=== PATIENT | female | born 1980 | race Caucasian/White ===

== ENCOUNTER 2019-12-24 09:50 | Outpatient (CLI) | payer OTHER, SELFPAY ==
--- NOTE | ~2019-12-24 | MM_ITS ---
EXAMINATION: MM screening [facility] BI w qamar HISTORY: Screening mammogram TECHNIQUE: Craniocaudal and mediolateral oblique 3-D tomosynthesis images were obtained and synthetic 2-D images were generated. CAD analysis was submitted and interpreted. COMPARISON: 09/01/2014, 08/18/2012 BREAST PARENCHYMAL COMPOSITION: The breasts are heterogeneously dense, which may obscure small masses . FINDINGS: RIGHT BREAST: There are indeterminate calcifications in the middle and posterior third of the upper o uter quadrant of the breast. LEFT BREAST: Indeterminate calcifications are present in the middle third of the lower breast. A stab le mass in the middle third of the outer breast is considered benign given the lack of interval lu e, likely reflecting an intramammary lymph node. IMPRESSION: 1. Indeterminate bilateral breast calcifications. 2. Magnification views are recommended. BI-RADS Category 0: Incomplete: Needs additional imaging evaluation. Reviewed, dictated and finalized at location A.
== END 2019-12-24 09:51 | disposition home or self-care (01) ==
LOC: ANHIMG 09:52
PROVIDERS: PCP Student in an Organized Health Care Education/Training Program; Visit Provider Student in an Organized Health Care Education/Training Program
DX: N64.89 Other specified disorders of breast (principal)
CPT/HCPCS: 77063; 77067

== ENCOUNTER 2019-12-27 11:00 | Outpatient (CLI) | payer OTHER, SELFPAY ==
--- NOTE | ~2019-12-27 | MM_ITS ---
EXAMINATION: MM diagnostic mammo BI HISTORY: Indeterminate breast calcifications on screening mammogram TECHNIQUE: Additional 3-D tomosynthesis images of the breasts were performed and synthetic 2-D images were generated. Magnification views are also obtained. CAD analysis was submitted and interpreted. COMPARISON: 12/24/2019, 09/01/2014, 08/18/2012 FINDINGS: Right breast: Coarse heterogeneous and punctate calcifications are present in the upper outer quadran t of the breast. There are groups of calcifications in the middle third of the outer breast at the 9: 00 location 6 cm from the nipple which are in a linear distribution. Some groups of calcifications in the posterior third of the upper outer quadrant of the breast 10 cm from the nipple are also in a si milar distribution. Left breast: There are coarse heterogeneous and punctate calcifications in the outer aspect of the br east, predominantly between 2:00 and 4:00. Some groups of calcifications in the middle third of the c entral breast demonstrate a linear distribution similar to the right breast. IMPRESSION: 1. Suspicious bilateral calcifications as described above. 2. Given the similarity of the bilateral calcifications, would recommend biopsy of the most conspicuo us group at the 9:00 location in the right breast and use biopsy results to guide management of the o ther groups of calcifications. BI-RADS category 4, suspicious findings. Reviewed, dictated and finalized at location A. IMPRESSION: 1. Suspicious bilateral calcifications as described above. 2. Given the similarity of the bilateral calcifications, would recommend biopsy of the most conspicuous group at the 9:00 location in the right breast and use biopsy results to guide management of the other groups of calcifications. BI-RADS category 4, suspicious findings.
== END 2019-12-27 11:01 | disposition home or self-care (01) ==
LOC: ANHIMG 11:02
PROVIDERS: PCP Student in an Organized Health Care Education/Training Program; Visit Provider Student in an Organized Health Care Education/Training Program
DX: R92.8 Other abnormal and inconclusive findings on diagnostic imaging of breast (principal)
CPT/HCPCS: 77066

== ENCOUNTER 2021-01-10 14:58 | Emergency (ER) | payer OTHER, SELFPAY ==
--- NOTE | 2021-01-10 15:05 | ED.URI ---
HPI - URI/Sore Throat General Chief Complaint: Upper Respiratory Infection Stated Complaint: cough/stuffy nose/nasal drip/garcia/ear pain/sob Time Seen by Provider: 01/10/21 15:00 Source: patient and RN notes reviewed History of Present Illness HPI Narrative: Patient is a 40-year-old female who presents the urgent care with complaints of cough, headache, stuffiness, postnasal drainage and cough. Patient states is been going on since Thursday and she has been taking [id number] Tylenol Cold and flu other sinus medication. Patient states that she went through the drive-through today for Covid test which she has not had resulted. Patient states that her ear just started hurting yesterday and when she wants to make sure she does not have an infection . Patient has not quarantined since her symptoms started and states that she was just at the store yesterday getting cold medication. Patient has had one Covid vaccination. No other acute complaints. No acute distress noted. Patient aware of the plan of care. Some parts of this dictation were generated by voice recognition software and may contain typographical and/or grammatical inaccuracies. Related Data Allergies Allergy/AdvReac Type Severity Reaction Status Date / Time loratadine Allergy Mild Dizziness Verified 01/10/21 15:05 codeine Allergy Unknown Vomiting Verified 01/10/21 15:05 erythromycin base Allergy Unknown Rash Verified 01/10/21 15:05 Sulfa (Sulfonamide Allergy Unknown Rash Verified 01/10/21 15:05 Antibiotics) vancomycin Allergy Unknown Vomiting Verified 01/10/21 15:05 Review of Systems Review of Systems: CONSTITUTIONAL: Denies fever, chills, or sweats. EYES: Denies visual changes, redness, or discharge. ENT: Reports of rhinorrhea, nasal congestion, postnasal drainage, bilateral otalgia CARDIOVASCULAR: Denies chest pain, palpitations, or edema. RESPIRATORY: Reports of cough with intermittent dyspnea GASTROINTESTINAL: Denies abdominal pain, nausea, vomiting, or diarrhea. GENITOURINARY: Denies dysuria or hematuria. SKIN: Denies rash or itching. MUSCULOSKELETAL: Denies back pain, joint pain, or myalgia. NEUROLOGIC: Reports of headache All other systems reviewed are negative, except as documented in HPI. [facility] Past Medical History Medical History ROX positive (~11/2018) Anxiety Inflammatory arthritis Irritable bowel Vaginal delivery x1 Vitamin D deficiency Surgical History Surgical History History of cholecystectomy History of placement of ear tubes History of tonsillectomy Family History Family History Father Family history of malignant neoplasm of brain Grandparent Family history of malignant neoplasm of brain Social History Social History Smoking status: Never smoker Second hand tobacco smoke exposure: No Alcohol intake: never Substance use: never Comments At the time of my signature, I reviewed and agree with the nursing past medical, surgical, social, and family history. There is no relevant family history pertinent to the patient complaint. Exam Narrative: GENERAL: This is a well-nourished, well-developed patient, in no apparent distress. HEAD: normocephalic, atraumatic. EYES: PERRL. Sclera clear/white. Vision is grossly intact. EARS: External ears normal, auditory canals clear and without drainage, TMs normal without perforation. Hearing grossly intact. NOSE: External nose normal with no obvious nasal discharge, nares without redness, clear rhinorrhea. THROAT: Mucous membranes moist, posterior pharynx clear. Mild postnasal drainage NECK: Neck supple CARDIOVASCULAR: Regular rate and rhythm without murmurs, gallops, or rubs. RESPIRATORY: Clear to auscultation. Breath sounds equal bilaterally.
[2021-01-10 15:07] VITALS: BP 140/93; PULSE 114; RESP 20; TEMP 36.2; O2SAT 99
== END 2021-01-10 15:31 | disposition home or self-care (01) ==
PROVIDERS: Emergency Provider Nurse Practitioner Family
DX: B34.9 Viral infection, unspecified (principal); E55.9 Vitamin D deficiency, unspecified; F41.9 Anxiety disorder, unspecified
CPT/HCPCS: 99213; G0463

== ENCOUNTER 2021-09-04 12:32 | Outpatient (CLI) | payer OTHER, SELFPAY ==
--- NOTE | ~2021-09-04 | CT_ITS ---
EXAMINATION: CT abd pelvis lumbar wo con DATE: 09/04/2021 13:00 INDICATION: Low back pain, unspecified. Pelvic pain. TECHNIQUE: Computed tomography (CT) of the abdomen and pelvis and lumbar spine was performed without intravenous contrast. Automated exposure control and iterative reconstruction technique were employed . The dose-length product was 1187.94 mGy-cm. COMPARISON: None. FINDINGS: CT ABDOMEN AND PELVIS: The visualized portions of the lung bases demonstrate mild atelectasis. No ple ural effusion. The heart size is normal. No pericardial effusion. The liver is normal. There are frazier ges of cholecystectomy. The spleen, pancreas, adrenal glands, and right kidney are normal. There is a 2.4 cm cyst in left kidney. There is a 2 mm stone in left kidney. There are no dilated loops of rory l. The appendix is normal. There is a supraumbilical ventral hernia containing fat. There are no path ologically enlarged lymph nodes. There is no free intraperitoneal fluid. CT LUMBAR SPINE: There is 5 degrees levocurvature of lumbar spine. Vertebral body heights are normal. There is mildly decreased disc height at L3-L4 and L4-L5. There are chronic bilateral L5 pars defect s. The following disc levels are specifically discussed: L1-L2: The disc does not extend beyond the endplate margin. There is mild bilateral facet joint osteo arthritis. There is no neural foraminal stenosis. There is no central canal stenosis. L2-L3: The disc does not extend beyond the endplate margin. There is mild bilateral facet joint osteo arthritis. There is no neural foraminal stenosis. There is no central canal stenosis. L3-L4: The disc is bulging. There is mild bilateral facet joint osteoarthritis. There is mild bilater al neural foraminal stenosis. There is mild central canal stenosis. L4-L5: The disc is bulging. There is severe bilateral facet joint osteoarthritis. There is mild bilat eral neural foraminal stenosis. There is mild central canal stenosis. L5-S1: The disc does not extend beyond the endplate margin. There is mild bilateral facet joint osteo arthritis. There is mild bilateral neural foraminal stenosis. There is no central canal stenosis. IMPRESSION: 1. Supraumbilical ventral hernia containing fat. 2. Chronic bilateral L5 pars defects without spondylolisthesis. 3. Mild lumbar spondylosis. Reviewed, dictated and finalized at location B.
== END 2021-09-04 12:33 | disposition home or self-care (01) ==
PROVIDERS: PCP Family Medicine; Visit Provider Physician Assistant Medical
DX: R10.2 Pelvic and perineal pain (principal); M47.896 Other spondylosis, lumbar region; K42.9 Umbilical hernia without obstruction or gangrene
CPT/HCPCS: 72131; 74176

== ENCOUNTER 2021-10-03 08:35 | Outpatient (CLI) | payer OTHER, SELFPAY ==
--- NOTE | ~2021-10-03 | US_ITS ---
US renal BI 10/03/2021 08:56 Procedure: Realtime transabdominal ultrasound of the kidneys and bladder. Indication: Renal cyst Comparison: CT dated 09/04/2021 Findings: Renal echotexture is normal bilaterally without hydronephrosis, contour deforming mass or r enal calculus. There is a left renal cyst measuring 2.5 x 2.4 x 2.3 cm. The right kidney measures 11. 4 cm and left kidney measures 11.7 cm. Bladder within normal limits. Impression: 1: Left renal cyst measuring 2.5 cm. Reviewed, dictated and finalized at location A. Impression: 1: Left renal cyst measuring 2.5 cm.
== END 2021-10-03 08:36 | disposition home or self-care (01) ==
PROVIDERS: PCP Family Medicine; Visit Provider Physician Assistant Medical
DX: N28.1 Cyst of kidney, acquired (principal)
CPT/HCPCS: 76775

== ENCOUNTER 2021-10-26 09:29 | Outpatient (CLI) | payer OTHER, SELFPAY ==
[2021-10-26 10:00] LABS: Hematocrit 44.2 % (37.0-47.0); Hemoglobin 14.4 g/dL (12.0-15.0); Mean Corpuscular HGB Conc 32.6 g/dl (32-36); Mean Corpuscular Hemoglobin 29.7 pg (26-34); Mean Corpuscular Volume 91.1 fl (80-100); Mean Platelet Volume 9.1 fl (7.4-10.4); Platelet Count Result 340 k/mm3 (150-375); Red Blood Count 4.85 M/mm3 (4.2-5.4); Red Cell Distribution Width 12.9 % (11.5-14.5); White Blood Count 7.2 K/mm3 (4.5-10.0)
[2021-10-26 10:06] LABS: Alanine Aminotransferase 24 U/L (6-35); Albumin Level 4.1 g/dL (3.5-5.1); Alkaline Phosphatase 94 U/L (38-126); Anion Gap 2 mmol/L (8-16); Aspartate Amino Transferase 26 U/L (14-36); Bilirubin,Total 0.4 mg/dL (0.2-1.3); Blood Urea Nitrogen 13 mg/dL (7-17); Calcium 8.9 mg/dL (8.4-10.2); Carbon Dioxide 30 mmol/L (22-30); Chloride 106 mmol/L (98-107); Cholesterol 231 mg/dL (0-200); Estimated Glomerular Filt Rate > 60; Glucose 90 mg/dL (65-110); HDL Direct 38 mg/dL; Potassium 4.4 mmol/L (3.4-5.0); Sodium 138 mmol/L (137-145); Triglycerides 176 mg/dL (<150)
[2021-10-26 10:17] LABS: LDL Cholesterol Direct 147 mg/dL
[2021-10-26 10:30] LABS: Erythrocyte Sedimentation Rate 15 mm/hr (0-20)
== END 2021-10-26 09:30 | disposition home or self-care (01) ==
LOC: ANHLAB 09:31
PROVIDERS: PCP Family Medicine; Visit Provider Physician Assistant Medical
DX: E78.2 Mixed hyperlipidemia (principal); R53.83 Other fatigue; M54.50 Low back pain, unspecified
CPT/HCPCS: 36415; 80053; 80061; 85027; 85652

== ENCOUNTER 2022-01-24 15:30 | Outpatient (RCR) | payer OTHER, SELFPAY ==
--- NOTE | 2021-11-21 16:07 | PTOPEVAL ---
Thank you for referring Isabel Sanders to [facility].? She is scheduled to be seen for therapy? 2 x/week for 4 weeks. Please review, sign, date and return this plan of care ROBERT. I agree with and certify that the following plan of care is medically necessary. 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 bladder stones Musculoskeletal History Hx Back Pain Yes Hx Other Musculoskeletal Disorders Yes: neck pain with headaches; Endocrine History Hx Endocrine Disorders No Significant History HEENT History Hx Tonsillectomy Yes: 1998 Hx Ear Surgery Yes: 1980 Other History Hx Other Medical Conditions Yes: increase wt gain since had daughter 4 yr ago Evaluation Information Diagnosis lumbar stenosis Onset May 2021 Subjective Information gradual increase in back pain, Query Text:As Reported By Patient/ no trauma or injury to back; Family Diagnostic Tests Other Tests For This Problem Yes: CT-lumbar levocurvature, disc bulge L3-4, L 4-5;facet jt OA Prior Level of Function Activity Level (Last 3 Months) 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, 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, 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 Hand Dominance Right Comments Additional Prior Level of Function can do all home tasks, but Comments increased pain in back, have to sit/rest due to pain; prior to having 4 year old daughter was doing fitness exercises, no longer do Pain Assessment Pain Scale Pain Scale Used Numeric (1 - 10) Self Report Pain Assessment Bilateral Back Reported Pain Level 2 Pain Description Aching Radicular Pain Location R low back, R hip lateral, into anterior hip; pops in back, nagging pain Pain Frequency Chronic,Continuous Lowest Pain Intensity 2 Greatest Pain Intensity 6 Pain Aggravating Factors Exercise/Activity,Lifting Other Pain Aggravating Factors with 10 min of home activity/
--- NOTE | 2021-12-03 17:07 | PCPTNOTE ---
Patient re-scheduled appointment this date for later this week.
--- NOTE | 2021-12-05 16:11 | PCPTNOTE ---
Patient called & cancelled scheduled appointment this date due to not feeling well.
--- NOTE | 2021-12-20 16:23 | PTOPEVAL ---
PHYSICAL THERAPY REEVALUATION AND UPDATED PLAN OF CARE 12-20-21 Refer to the clinical summary below, for her status today, compared to the initial evaluation. The goals were partially achieved. Continue PT treatment 1x/wk for 5 weeks. Thank you for referring Isabel Sanders to [facility].? Please review, sign, date and return this updated plan of care [facility]. I agree with and certify that the following plan of care is medically necessary. 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- she was pleased with the improvements of the back pain; want to continue therapy; Pain Assessment Pain Scale Pain Scale Used Numeric (1 - 10) Self Report Pain Assessment Bilateral Back Pain Frequency Chronic,Intermittent Other Pain Description nagging dull pain-- R lower back and lateral upper hip into anterior pelvic Lowest Pain Intensity 0 Greatest Pain Intensity 5 Other Pain Aggravating Factors end of the day about 9 PM Additional Pain Score Comments pt report activity level of 30 minutes before have to sit due to pain, rest about 15 min , then go again; at the end of the day, in bed rolling side/side sometimes hurts; Oswestry self assessment functional score of 30% limitation in activity level; pt stood and foam placed under L foot ~ 1/4 thickness- pelvis more level; discussed her obtaining shoe insert for L Interventions Used Interventions Used By Clinicians Education,Exercise Pain Relief Interventions Used By Heat,Ice,Position Change Patient Other Alleviating Interventions sit with good position; taken advil about every other day Lumbar ROMComments standing trunk flexion increase pain when return to upright position/ extension increase soreness Gross Lower Extremity Range of Motion - hip IR: prone, with knee Comments
--- NOTE | 2022-01-02 09:20 | PCPTNOTE ---
Patient called & cancelled scheduled appointment this date due to being sick.
--- NOTE | 2022-01-24 16:14 | PTOPDC ---
Assessment and note entered by Selena Mckeon, PT Evaluation Information Assessment Status Discharge Subjective Information Isabel reports: back is about the same, have good and bad days--not sure why; have been watching posture and doing exercises at home; Reported Pain Level Pain Score Self Report low back pain Additional Pain Score Comments pain range of 2-7/10; nagging, achey pain; increase with bending forward, lifting, moving wrong; eases with stretching, ice, tylenol and laying on back; hurts occasionally when roll R/L in bed; activity tolerance with home tasks before have to sit down is 45 minutes. Self assessment Oswestry score of 28% limitation in activity Assessment PT Clinical Summary Isabel has received 11 PT sessions. Compared to the last reevaluation: pain rating is worse at low and high rating, from 0-5/10 to 2-7/ 10; self assessment Oswestry improved by 2%; reported activity tolerance increased by 15 minutes; hip and trunk flexibility are about the same with ROM and painful motions; Education has been completed for HEP, correct lifting posture and techniques for pain management The goals were partially achieved. Discharge PT services. Plan of Care PT Services Indicated No
== END 2022-01-27 09:35 | disposition home or self-care (01) ==
LOC: ANHPT 15:30
PROVIDERS: PCP Family Medicine; Visit Provider Physician Assistant Medical
DX: M54.50 Low back pain, unspecified (principal); M47.816 Spondylosis without myelopathy or radiculopathy, lumbar region
CPT/HCPCS: 97110; 97112; 97140; 97161; 97530

== ENCOUNTER 2022-02-18 11:51 | Emergency (ER) | payer OTHER, SELFPAY ==
--- NOTE | ~2022-02-18 | XR_ITS ---
EXAMINATION: XR chest 2V DATE: 02/18/2022 12:21 INDICATION: Cough and fever. TECHNIQUE: Frontal and lateral views of the chest were obtained. COMPARISON: CT abdomen and pelvis 09/04/2021 FINDINGS: The chest demonstrates clear lungs without pneumonia, pleural effusion, or pneumothorax. Th e heart size is normal. Surgical clips in the right upper quadrant are likely from cholecystectomy. IMPRESSION: 1. No acute cardiopulmonary disease. Reviewed, dictated and finalized at location B.
--- NOTE | 2022-02-18 11:55 | ED.URI ---
HPI - URI/Sore Throat General Chief Complaint: Upper Respiratory Infection Stated Complaint: COUGH/FEVER/LOSING VOICE/BODY ACHES/CHEST PN/CHILL Time Seen by Provider: 02/18/22 12:01 Source: patient and RN notes reviewed Mode of arrival: ambulatory Limitations: no limitations History of Present Illness HPI Narrative: 41 year year old female presents to the [facility] with productive cough, sore throat, body aches, chills, subjective fever patient states started to 3 days. States that she believes it was because the coughing too hard. States that she did take all medicine yesterday. Related Data Allergies Allergy/AdvReac Type Severity Reaction Status Date / Time codeine AdvReac Intermediate Vomiting Verified 02/18/22 11:56 vancomycin AdvReac Intermediate Vomiting Verified 02/18/22 11:56 erythromycin base AdvReac Mild Rash Verified 02/18/22 11:56 loratadine AdvReac Mild Dizziness Verified 02/18/22 11:56 Sulfa (Sulfonamide AdvReac Mild Rash Verified 02/18/22 11:56 Antibiotics) Review of Systems Review of Systems: All systems reviewed & are unremarkable except as noted in HPI and below Constitutional: Constitutional: Reports as per HPI, Reports chills and Reports fever(s) Eyes: Eyes: Reports no additional eye complaints ENT: Reports as per HPI and Reports sore throat Cardiovascular: Cardiovascular: Reports no additional cardiovascular complaints Respiratory: Respiratory: Reports as per HPI, Reports cough, Denies dyspnea and Denies wheezing Gastrointestinal: Gastrointestinal: Reports as per HPI Musculoskeletal: Musculoskeletal: Reports no additional musculoskeletal complaints Integumentary/Breasts: Skin/Breast: Reports system reviewed and no additional complaints, except as docu Neurologic: Reports system reviewed and no additional complaints, except as documented Psychiatric: Psychiatric: Reports no additional psychiatric complaints Allergic/Immunologic: Allergic/Immunologic: Reports no additional allergic/immunologic complaints [facility] Past Medical History Medical History ROX positive (~11/2018) Anxiety Bulging lumbar disc Inflammatory arthritis Irritable bowel Kidney stone Low back pain Renal cyst, acquired, left Ulcerative colitis Vaginal delivery x1 Vitamin D deficiency Surgical History Surgical History History of cholecystectomy History of placement of ear tubes History of tonsillectomy Family History Family History Father Family history of malignant neoplasm of brain Grandparent Family history of malignant neoplasm of brain Mother Diabetes mellitus Rheumatoid arthritis Osteoarthritis Hypertension Sibling Hypertension Social History Social History Smoking status: Never smoker Second hand tobacco smoke exposure: No Alcohol intake: current Alcohol use details: seldom; socially Substance use: never Substance use type: does not use Comments At the time of my signature, I reviewed and agree with the nursing past medical, surgical, social, and family history. There is no relevant family history pertinent to the patient complaint. Exam Const: General: healthy appearing, no acute distress, alert and well nourished Nutritional Appearance: well nourished and obese Orientation/consciousness: patient oriented x3 Limitations: no limitations HENMT: Head: normal to inspection Ears: external ears normal, TM's normal bilaterally and EAC's normal Face/Nose/Sinus: Normal external nose present and Nasal discharge present clear bilateral Face and sinus: normal facial exam Mouth: Yes Normal oral and palatal mucosa present, Yes lip normal and Yes moist mucous membranes Throat: posterior oropharynx normal and uvula midline Eyes: General: appearance normal, both eyes
[2022-02-18 12:01] VITALS: BP 130/97; PULSE 122; RESP 16; TEMP 38; O2SAT 97
== END 2022-02-18 13:00 | disposition home or self-care (01) ==
PROVIDERS: Emergency Provider Nurse Practitioner; PCP Physician Assistant Medical
DX: J40 Bronchitis, not specified as acute or chronic (principal); Z20.822 Contact with and (suspected) exposure to COVID-19; M13.80 Other specified arthritis, unspecified site; E55.9 Vitamin D deficiency, unspecified
CPT/HCPCS: 71046; 87081; 87426; 87804; 87880; 99213; C9803; G0463

== ENCOUNTER 2022-03-28 14:41 | Emergency (ER) | payer OTHER, SELFPAY ==
[2022-03-28 14:59] VITALS: BP 118/86; PULSE 90; RESP 16; TEMP 36.3; O2SAT 100
--- NOTE | 2022-03-28 15:17 | ED.SKABFB ---
HPI - Skin/Abscess/Foreign Bdy General Chief complaint: Extremity Problem,Nontraumatic Stated complaint: painful rt pinky Time Seen by Provider: 03/28/22 15:17 Source: patient and RN notes reviewed Mode of arrival: ambulatory Limitations: no limitations History of Present Illness HPI narrative: 41-year-old female presents with concern for redness, tenderness to the distal 5th digit of her right hand. She reports she notice symptoms started yesterday after she had a hangnail. She reports she soaked it in salt water that helped the pain briefly. She denies drainage. She denies injury or trauma MD complaint: abscess/boil Related Data Home Medications Medication Instructions Recorded Confirmed norethindrone acetate 1 mg-ethinyl tablet 03/28/22 03/28/22 estradiol 20 mcg tablet Allergies Allergy/AdvReac Type Severity Reaction Status Date / Time codeine Allergy Intermediate Vomiting Verified 03/28/22 15:26 vancomycin Allergy Intermediate Vomiting Verified 03/28/22 15:26 erythromycin base Allergy Mild Rash Verified 03/28/22 15:26 loratadine Allergy Mild Dizziness Verified 03/28/22 15:26 Sulfa (Sulfonamide Allergy Mild Rash Verified 03/28/22 15:26 Antibiotics) Review of Systems Review of Systems: CONSTITUTIONAL: Denies malaise, chills, sweats, or fever. EYES: Denies redness, or discharge. ENT: Denies rhinorrhea, congestion, swollen lips, swollen tongue CARDIOVASCULAR: Denies chest pain, palpitations, or edema. RESPIRATORY: Denies cough or dyspnea. GASTROINTESTINAL: Denies abdominal pain, nausea, vomiting SKIN: Reports redness, warmth, tenderness the distal right 5th digit MUSCULOSKELETAL: Denies joint pain or myalgia. NEUROLOGIC: Denies headache. All systems reviewed & are unremarkable except as noted in HPI and below PMFSH Past Medical History Medical History ROX positive (~11/2018) Anxiety Bulging lumbar disc Inflammatory arthritis Irritable bowel Kidney stone Low back pain Renal cyst, acquired, left Ulcerative colitis Vaginal delivery x1 Vitamin D deficiency Surgical History Surgical History History of cholecystectomy History of placement of ear tubes History of tonsillectomy Family History Family History Father Family history of malignant neoplasm of brain Grandparent Family history of malignant neoplasm of brain Mother Diabetes mellitus Rheumatoid arthritis Osteoarthritis Hypertension Sibling Hypertension Social History Social History Smoking status: Never smoker Second hand tobacco smoke exposure: No Alcohol intake: current Alcohol use details: seldom; socially Substance use: never Substance use type: does not use Comments At time of signature, agree with nursing past medical, surgical, social and family history. There is no relevant family history pertinent to the presenting complaint Exam Narrative: GENERAL: Well-appearing, well-nourished, and in no acute distress. HEAD: Normocephalic, atraumatic. EYES: PERRLA, conjunctivae clear, and EOMI. ENT: Mucous membranes moist. Oropharynx without edema, erythema or lesions. NECK: Supple. No lymphadenopathy CHEST: Clear to auscultation. No respiratory distress. HEART: Regular rate and rhythm. SKIN: Warm, dry. Distal 5th digit with erythema, edema, tenderness surrounding the nail bed consistent with paronychia, no fluctuation or drainage noted NEURO: Alert and oriented x3. PSYCH: Normal mood and affect Course Course Emergency Course: Patient is aware of diagnosis, understands and agrees to treatment plan. Anticipatory guidance given. Patient agrees to follow-up as directed and is aware of reasons to seek care at the emergency department. Portions of this record may have been created with voice
== END 2022-03-28 15:28 | disposition home or self-care (01) ==
PROVIDERS: Emergency Provider Nurse Practitioner; PCP Physician Assistant Medical
DX: L03.011 Cellulitis of right finger (principal)
CPT/HCPCS: 99213; G0463

== ENCOUNTER 2022-11-05 16:31 | Outpatient (CLI) | payer OTHER, SELFPAY ==
--- NOTE | ~2022-11-05 | MM_ITS ---
EXAMINATION: MM screening layla BI w qamar HISTORY: Screening mammogram TECHNIQUE: Craniocaudal and mediolateral oblique 3-D tomosynthesis images were obtained and synthetic 2-D images were generated. CAD analysis was submitted and interpreted. COMPARISON: 12/27/2019 bilateral diagnostic mammogram 12/24/2019 bilateral screening mammogram 09/01/2014 bilateral diagnostic mammogram BREAST PARENCHYMAL COMPOSITION: There are scattered areas of fibroglandular density. FINDINGS: A biopsy marker is present on each side. History of bilateral benign breast biopsies for mi crocalcifications. Stable fibroglandular asymmetry, more prominent in the upper outer right breast. Stable benign-appear ing upper outer quadrant left probable benign intramammary lymph node. There is no evidence of suspicious mass, calcification, or architectural distortion to suggest malig annalise in either breast. There has been no suspicious interval change. IMPRESSION: 1. No mammographic evidence of malignancy. 2. Recommend routine screening mammography in one year. BI-RADS Category 2: Benign finding(s). Reviewed, dictated and finalized at location A.
== END 2022-11-05 16:32 | disposition home or self-care (01) ==
LOC: ANHIMG 16:42
PROVIDERS: PCP Physician Assistant Medical; Visit Provider Student in an Organized Health Care Education/Training Program
DX: Z12.31 Encounter for screening mammogram for malignant neoplasm of breast (principal)
CPT/HCPCS: 77063; 77067

== ENCOUNTER 2023-03-29 10:37 | Emergency (ER) | payer OTHER, SELFPAY ==
[2023-03-29 11:10] VITALS: BP 128/88; PULSE 114; RESP 16; TEMP 36.5; O2SAT 98
--- NOTE | 2023-03-29 11:10 | ED.GENADULT ---
HPI - General Adult General Chief complaint: Upper Respiratory Infection Stated complaint: Cough;Headache Time Seen by Provider: 03/29/23 11:30 Source: patient, RN notes reviewed and old records reviewed Mode of arrival: ambulatory Limitations: no limitations History of Present Illness HPI narrative: 42-year-old female presents to the [facility] with complaints of a cough, sinus congestion and a headache. Symptoms started on Thursday, 5 days ago Patient was exposed to influenza B. Related Data Home Medications Medication Instructions Recorded Confirmed norethindrone acetate 1 mg-ethinyl 1 tablet PO DAILY 03/28/22 03/29/23 estradiol 20 mcg tablet Allergies Allergy/AdvReac Type Severity Reaction Status Date / Time codeine Allergy Intermediate Vomiting Verified 03/29/23 10:41 vancomycin Allergy Intermediate Vomiting Verified 03/29/23 10:41 erythromycin base Allergy Mild Rash Verified 03/29/23 10:41 loratadine Allergy Mild Dizziness Verified 03/29/23 10:41 Sulfa (Sulfonamide Allergy Mild Rash Verified 03/29/23 10:41 Antibiotics) Review of Systems Review of Systems: All systems reviewed & are unremarkable except as noted in HPI and below Constitutional: Constitutional: Reports no additional constitutional complaints Eyes: Eyes: Reports no additional eye complaints ENT: Reports as per HPI, Reports nasal congestion and Reports nasal discharge Cardiovascular: Cardiovascular: Reports no additional cardiovascular complaints, Denies chest pain and Denies dyspnea Respiratory: Respiratory: Denies chest congestion, Reports cough and Denies dyspnea Gastrointestinal: Gastrointestinal: Reports no additional gastrointestinal complaints, Denies abdominal pain, Denies nausea and Denies vomiting Musculoskeletal: Musculoskeletal: Reports no additional musculoskeletal complaints Integumentary/Breasts: Skin/Breast: Reports system reviewed and no additional complaints, except as docu Neurologic: Reports system reviewed and no additional complaints, except as documented Psychiatric: Psychiatric: Reports no additional psychiatric complaints Allergic/Immunologic: Allergic/Immunologic: Reports no additional allergic/immunologic complaints PMFSH Past Medical History Medical History ROX positive (~11/2018) Anxiety Bulging lumbar disc History of COVID-19 08/2022 Inflammatory arthritis Irritable bowel Kidney stone Low back pain Renal cyst, acquired, left Ulcerative colitis Vaginal delivery x1 Vitamin D deficiency Surgical History Surgical History History of cholecystectomy History of placement of ear tubes History of tonsillectomy Family History Family History Father Family history of malignant neoplasm of brain Grandparent Family history of malignant neoplasm of brain Mother Diabetes mellitus Rheumatoid arthritis Osteoarthritis Hypertension Sibling Hypertension Social History Social History Smoking status: Never smoker Second hand tobacco smoke exposure: No Alcohol intake: current Alcohol use details: seldom; socially Substance use: never Substance use type: does not use Lack of Transportation: No Lack of Food: Never True Current Housing: I Have Housing Concerned About Future Housing: No Difficulty Paying Gas/Electric Bills: No Difficulty Paying for Meds: No Education: Associate Degree Difficulty w/ Childcare or Family Care: No Living arrangements: with family Occupation/Education: occupation Gender identity (if verbalized by the patient): Female Sexual Orientation (if Verbalized by the Patient): Straight or Heterosexual Spiritual care concerns: No Comments At the time of my signature, I reviewed and agree with the nursing past medical, surg
== END 2023-03-29 11:48 | disposition home or self-care (01) ==
PROVIDERS: Emergency Provider Nurse Practitioner; PCP Physician Assistant Medical
DX: J10.1 Influenza due to other identified influenza virus with other respiratory manifestations (principal); M13.80 Other specified arthritis, unspecified site; Z86.16 Personal history of COVID-19; F41.9 Anxiety disorder, unspecified; E55.9 Vitamin D deficiency, unspecified
CPT/HCPCS: 87804; 99213; G0463

== ENCOUNTER 2023-04-19 10:53 | Emergency (ER) | payer OTHER, SELFPAY ==
--- NOTE | ~2023-04-19 | XR_ITS ---
EXAMINATION: XR chest 2V 04/19/2023 11:53 INDICATION: Cough PROCEDURE: 2 view chest COMPARISON: 02/18/2022 FINDINGS: The lungs are clear. The cardiomediastinal silhouette is within normal limits. There are no pleural effusions. There is no pneumothorax suspected. IMPRESSION: 1: NO ACUTE CARDIOPULMONARY DISEASE. Reviewed, dictated and finalized at location A. GE GAME DIRECTOR
[2023-04-19 11:11] VITALS: BP 141/98; PULSE 91; RESP 16; TEMP 36.8; O2SAT 98
--- NOTE | 2023-04-19 11:47 | ED.GENADULT ---
HPI - General Adult General Chief complaint: Upper Respiratory Infection Stated complaint: COUGH/VOMITING S/P INFLUENZA B Source: patient Mode of arrival: ambulatory Limitations: no limitations History of Present Illness HPI narrative: Patient presents for evaluation of a cough since the end of March. She indicates several family members had influenza B at the time of symptom onset, but fully recovered. She had a productive cough during that time but her cough has since become nonproductive in nature. She does have episodes of vomiting during coughing episodes from coughing so hard. She has experienced wheezing. Denies nausea and vomiting otherwise. No fever, chills, ear pain, sore throat, chest pain or diarrhea. She does not smoke. She has taken nyquil for her symptoms without considerable improvement thereafter. Related Data Allergies Allergy/AdvReac Type Severity Reaction Status Date / Time codeine Allergy Intermediate Vomiting Verified 04/19/23 11:14 vancomycin Allergy Intermediate Vomiting Verified 04/19/23 11:14 erythromycin base Allergy Mild Rash Verified 04/19/23 11:14 loratadine Allergy Mild Dizziness Verified 04/19/23 11:14 Sulfa (Sulfonamide Allergy Mild Rash Verified 04/19/23 11:14 Antibiotics) Review of Systems Review of Systems: CONSTITUTIONAL: Denies fever, chills, or sweats. EYES: Denies visual changes, redness, or discharge. ENT: Denies rhinorrhea, congestion, sore throat, or otalgia. CARDIOVASCULAR: Denies chest pain, palpitations, or edema. RESPIRATORY: Reports nonproductive cough and wheezing. GASTROINTESTINAL: Reports vomiting during coughing episodes. Denies nausea vomiting otherwise. Denies abdominal pain or diarrhea. GENITOURINARY: Denies dysuria or hematuria. SKIN: Denies rash or itching. MUSCULOSKELETAL: Denies back pain, joint pain, or myalgia. NEUROLOGIC: Denies headache, numbness, dizziness, or weakness. PSYCHIATRIC: Denies anxiety or depression. [facility] Past Medical History Medical History ROX positive (~11/2018) Anxiety Bulging lumbar disc History of COVID-19 08/2022 Inflammatory arthritis Irritable bowel Kidney stone Low back pain Renal cyst, acquired, left Ulcerative colitis Vaginal delivery x1 Vitamin D deficiency Surgical History Surgical History History of cholecystectomy History of placement of ear tubes History of tonsillectomy Family History Family History Father Family history of malignant neoplasm of brain Grandparent Family history of malignant neoplasm of brain Mother Diabetes mellitus Rheumatoid arthritis Osteoarthritis Hypertension Sibling Hypertension Social History Social History Smoking status: Never smoker Second hand tobacco smoke exposure: No Alcohol intake: current Alcohol use details: seldom; socially Substance use: never Substance use type: does not use Lack of Transportation: No Lack of Food: Never True Current Housing: I Have Housing Concerned About Future Housing: No Difficulty Paying Gas/Electric Bills: No Difficulty Paying for Meds: No Education: Associate Degree Difficulty w/ Childcare or Family Care: No Living arrangements: with family Occupation/Education: occupation Gender identity (if verbalized by the patient): Female Sexual Orientation (if Verbalized by the Patient): Straight or Heterosexual Spiritual care concerns: No Exam Narrative: GENERAL: Well-appearing, well-nourished, and in no acute distress. HEAD: Normocephalic, atraumatic. EYES: PERRLA and EOMI. ENT: Nares clear, no rhinorrhea or epistaxis. Mucous membranes moist. Oropharynx without tonsillar hypertrophy exudate or other lesions. Bilateral TMs pearly katz nonbulging
== END 2023-04-19 12:21 | disposition home or self-care (01) ==
PROVIDERS: Emergency Provider Nurse Practitioner; PCP Physician Assistant Medical
DX: J06.9 Acute upper respiratory infection, unspecified (principal); Z20.822 Contact with and (suspected) exposure to COVID-19; M13.80 Other specified arthritis, unspecified site
CPT/HCPCS: 71046; 87426; 87804; 99213; C9803; G0463

== ENCOUNTER 2023-11-03 08:06 | Outpatient (CLI) | payer OTHER, SELFPAY | END 2023-11-03 08:07 | disposition home or self-care (01) | LOC: ANHSURGERY 08:09 | PROVIDERS: PCP Physician Assistant Medical; Visit Provider Surgery | DX: K43.9 Ventral hernia without obstruction or gangrene (principal) | CPT/HCPCS: 36415; 86850; 86900; 86901 ==

== ENCOUNTER 2023-11-11 01:28 | Day surgery (SDC) | payer OTHER, SELFPAY ==
[2023-11-02 15:33] VITALS: BMI 38.0
--- NOTE | 2023-11-02 16:01 | PC.NURSE ---
Report to the Outpatient Waiting Room, entrance under the green pavilion located off [facility], at 0600 on 11-11-23. Planned Procedure Time: 0730. Time changes happen often and if your time is changed the preop area will call you the afternoon before. - You and your visitor will be asked to self-screen and do not enter if you have any COVID symptoms. - A mask is optional within the hospital at this time. Patients may have clear liquids (water, carbonated beverages, clear teas, apple juice) until 3 hours prior to surgery with a maximum of 20 ounces. 0430 - No food from midnight until time of surgery - Infants may have breast milk until 4 hours before surgery, formula 6 hours prior to surgery. - Children will be allowed to drink immediately following surgery. If applicable, please bring a bottle or sippy cup to assist with drinking. Juice, water, soda, and popsicles are readily available. For infants on formula, please bring formula the day of surgery. Pacifiers are allowed. Take the following medications with a SIP of water the morning of surgery: None Bring albuterol inhaler DOS DO NOT STOP ANY OF YOUR OTHER PRESCRIPTION MEDICATIONS PRIOR TO SURGERY ?EXCEPT THE FOLLOWING Medications to discontinue per physician: vitamins and supplements Date to take last dose: 11-08-23 Please no make-up, nail bengali, hairspray, perfume, deodorant, or body powder the day of surgery. No jewelry (including any body piercings) or valuables the day of surgery, leave them at home. Please take a shower or bath the night before, or the morning of, surgery with an antibacterial soap. Wear comfortable, loose fitting clothing. Children are encouraged to wear pajamas. - Jewelry must be removed prior to entering the operating room. Rings and piercings that are not removed may be cut off. - The hospital will not accept responsibility for valuables. - Please leave all valuables, including medications, at home the day of surgery. If you are going home after surgery, a licensed truss driver helper must drive you home. - NO public transportation without another adult if you receive anesthesia. - We recommend that an adult stay with you for 24 hours following discharge. - We also recommend that you do not drive, make important decision, drink alcoholic beverages, or take any drugs that were not prescribed by your health care provider for at least 24 hours after your discharge time. For Pediatric surgeries, we recommend two adults accompany the child home. Follow any additional instructions given to you from your surgeon. If you or anyone in your household have experienced Covid symptoms in the past week, please notify your surgeon or the nurse liaison at the phone number below for possible testing. Telephone instructions given to Isabel Sanders and asked if any additional questions and then verbalized understanding. Patient advised to call surgeon office or pre surgery nurse liaison [phone] if any additional questions.
[2023-11-11] VITALS (12 sets, daily range): BP systolic 93–125; BP diastolic 60–80; PULSE 68–89; RESP 12–20; TEMP 36.4–36.7; O2SAT 92–97
[2023-11-11] MEDS: ACETAMINOPHEN 500 MG TABLET 1000 MG PO (06:41)
[2023-11-11] MEDS: LACTATED RINGERS 1,000 ML 30 ML IV CONT ×3 (06:45→11:06)
--- NOTE | 2023-11-11 06:49 | WPDANESEPPF ---
Anes - Initial Pre Proc Eval Procedure: Operation Date: 11/11/23 07:30 Proposed Procedures p Laparoscopic Ventral Hernia Repair with Mesh, DaVinci Assisted - Bobby Carmona DO Date/Time: 11/11/23 06:49 Surgeon: Bobby Carmona DO Pre Op Diagnosis: ventral hernia 3 cm Patient Data Age: 43 Gender: F Height: 1.6 m Weight: 97.52 kg Allergies Allergy/AdvReac Type Severity Reaction Status Date / Time codeine Allergy Intermediate Vomiting Verified 11/11/23 06:16 vancomycin Allergy Intermediate Vomiting Verified 11/11/23 06:16 erythromycin base Allergy Mild Rash Verified 11/11/23 06:16 loratadine Allergy Mild Dizziness Verified 11/11/23 06:16 Sulfa (Sulfonamide Allergy Mild Rash Verified 11/11/23 06:16 Antibiotics) Home Medications Medication Instructions Recorded Confirmed Type norethindrone acetate 1 mg-ethinyl 1 tablet PO DAILY #63 tabs 04/03/23 11/11/23 Rx estradiol 20 mcg tablet albuterol sulfate 90 mcg/actuation 1 inh inhalation Q4H PRN shortness 05/06/23 11/02/23 Rx aerosol inhaler of breath or wheezing #8.5 grams sertraline 50 mg tablet See Rx Instructions .Route 08/30/23 11/11/23 Rx .COMPLEX #90 tabs ergocalciferol (vitamin D2) 1,000 50 mcg PO DAILY 11/02/23 11/11/23 History unit capsule Patient hx anesthesia problems: none Family hx anesthesia problems: none Results Review: All pre-operative results and documents have been reviewed as part of the pre-operative evaluation. [facility] Past Medical History Medical History ROX positive (~11/2018) Anxiety Bulging lumbar disc History of COVID-19 08/2022 Inflammatory arthritis Irritable bowel Kidney stone Low back pain Renal cyst, acquired, left Ulcerative colitis Vaginal delivery x1 Vitamin D deficiency Surgical History Surgical History History of cholecystectomy History of placement of ear tubes History of tonsillectomy Family History Family History Father Family history of malignant neoplasm of brain Grandparent Family history of malignant neoplasm of brain Mother Diabetes mellitus Rheumatoid arthritis Osteoarthritis Hypertension Sibling Hypertension Social History Social History Smoking status: Never smoker Second hand tobacco smoke exposure: No Alcohol intake: current Alcohol use details: rarely Substance use: never Substance use type: does not use Do You Feel Safe in your Home?: Yes Lack of Transportation: No Lack of Food: Never True Current Housing: I Have Housing Concerned About Future Housing: No Difficulty Paying Gas/Electric Bills: No Difficulty Paying for Meds: No Currently Unemployed: No Education: Associate Degree Difficulty w/ Childcare or Family Care: No Living arrangements: with family Occupation/Education: occupation 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 Gender identity (if verbalized by the patient): Female Sexual Orientation (if Verbalized by the Patient): Straight or Heterosexual Spiritual care concerns: No Anes - Eval Final PreProcedure Day of Procedure 11/11/23 06:49 Patient weight: obese Heart: regular rate and rhythm Lungs: clear to auscultation Airway: Mallampati scale class II Neurological: alert and oriented Last oral intake: >/= 8 hours ASA classification: III Emergent: no Anesthetic plan: proceed Anesthesia type and monitoring: general ETT and standard monitoring Results Review: All pre-operative results and documents have been reviewed as part of the pre-operative evaluation. Informed Consent: The patient's anesthetic plan and its attendant risks and benefits were discussed with the patient/family/POA. Questions were solicited and answers provided to the satisfaction of the patien
[2023-11-11] MEDS: KETOROLAC 15 MG/ML VIAL (*BKC) IV PUSH (06:50)
--- NOTE | 2023-11-11 07:14 | PM.IMHP ---
H&P: HPI History of Present Illness Date/Time: 11/11/23 07:14 Chief Complaint: ventral hernia Narrative: 43 yo woman presents for ventral hernia repair. She reports no changes since last seen in office. Review of Systems Review of Systems: All systems reviewed & are unremarkable except as noted in HPI and below Constitutional: Constitutional: Denies chills, Denies fever(s), Denies headache(s) and Denies weight loss Eyes: Eyes: Denies change in vision ENT: Denies dizziness, Denies headache(s), Denies neck mass and Denies throat swelling Cardiovascular: Cardiovascular: Denies chest pain, Denies lightheadedness and Denies dyspnea Respiratory: Respiratory: Denies cough, Denies dyspnea and Denies wheezing Gastrointestinal: Gastrointestinal: Denies abdominal pain, Denies change in bowel habits, Denies nausea and Denies vomiting Genitourinary: Genitourinary: Denies hematuria and Denies dysuria Musculoskeletal: Musculoskeletal: Reports as per HPI Integumentary/Breasts: Skin/Breast: Reports as per HPI Neurologic: Denies dizziness and Denies headache(s) Allergic/Immunologic: Allergic/Immunologic: Denies throat swelling and Denies wheezing [facility] Past Medical History Medical History ROX positive (~11/2018) Anxiety Bulging lumbar disc History of COVID-19 08/2022 Inflammatory arthritis Irritable bowel Kidney stone Low back pain Renal cyst, acquired, left Ulcerative colitis Vaginal delivery x1 Vitamin D deficiency Surgical History Surgical History History of cholecystectomy History of placement of ear tubes History of tonsillectomy Family History Family History Father Family history of malignant neoplasm of brain Grandparent Family history of malignant neoplasm of brain Mother Diabetes mellitus Rheumatoid arthritis Osteoarthritis Hypertension Sibling Hypertension Social History Social History Smoking status: Never smoker Second hand tobacco smoke exposure: No Alcohol intake: current Alcohol use details: rarely Substance use: never Substance use type: does not use Do You Feel Safe in your Home?: Yes Lack of Transportation: No Lack of Food: Never True Current Housing: I Have Housing Concerned About Future Housing: No Difficulty Paying Gas/Electric Bills: No Difficulty Paying for Meds: No Currently Unemployed: No Education: Associate Degree Difficulty w/ Childcare or Family Care: No Living arrangements: with family Occupation/Education: occupation 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 Gender identity (if verbalized by the patient): Female Sexual Orientation (if Verbalized by the Patient): Straight or Heterosexual Spiritual care concerns: No Meds Home Medications and Allergies Home Medications Medication Instructions Recorded Confirmed Type norethindrone acetate 1 mg-ethinyl 1 tablet PO DAILY #63 tabs 04/03/23 11/11/23 Rx estradiol 20 mcg tablet albuterol sulfate 90 mcg/actuation 1 inh inhalation Q4H PRN shortness 05/06/23 11/02/23 Rx aerosol inhaler of breath or wheezing #8.5 grams sertraline 50 mg tablet See Rx Instructions .Route 08/30/23 11/11/23 Rx .COMPLEX #90 tabs ergocalciferol (vitamin D2) 1,000 50 mcg PO DAILY 11/02/23 11/11/23 History unit capsule Allergies Allergy/AdvReac Type Severity Reaction Status Date / Time codeine Allergy Intermediate Vomiting Verified 11/11/23 06:16 vancomycin Allergy Intermediate Vomiting Verified 11/11/23 06:16 erythromycin base Allergy Mild Rash Verified 11/11/23 06:16 loratadine Allergy Mild Dizziness Verified 11/11/23 06:16 Sulfa (Sulfonamide Allergy Mild Rash Verified 11/11/23 06:16 Antibiotics) Exam Const: General: no acute distress and
--- NOTE | 2023-11-11 07:15 | WPDHPUPDATE1 ---
History and Physical Update Update Date/Time: 11/11/23 07:15 History and Physical has been reviewed, including an updated exam of the patient. There are NO changes in the patient's condition. Risks, benefits, and alternatives have been discussed and questions answered. Patient agrees to proceed with procedure.
[2023-11-11] MEDS: ceFAZolin 2 GM/D5W 50 ML 2 GM/50 ML BAG IVPB (07:30)
[2023-11-11] MEDS: BUPIVACAINE/EPINEPHRINE 0.5% 10 ML VIAL 30 ML INFILTRATE (08:08)
--- NOTE | 2023-11-11 09:12 | W.PM.PROC2 ---
Procedure Note - Detailed Date of Procedure 11/11/23 Pre-op Diagnosis ventral hernia Post-op Diagnosis Same (3 cm ventral hernia) Procedure Performed Laparoscopic 3 cm ventral hernia repair with mesh, da Domingo assisted Surgeon Bobby Carmona DO Anesthesia General and Local (0.5% bupivacaine with epinephrine) Indications This is a 43-year-old woman who presented with a noticeable bulge superior to her umbilicus that had been present for about 5 or 6 years. She was experiencing some pain and nausea associated with this. She was found to have a 3 cm ventral hernia in the supraumbilical region. The hernia appeared reducible but was symptomatic. Discussed treatment options with the patient and decision was made to proceed with robotic assisted laparoscopic ventral hernia repair with mesh. Findings Laparoscopic 3 cm ventral hernia repair with mesh was performed. The patient was found to have a 3 cm ventral hernia located about 2 cm cephalad to the umbilicus. The hernia contained preperitoneal fat and part of the falciform ligament. A robotic intraperitoneal onlay mesh technique was utilized for repair. The preperitoneal fat and hernia sac was excised from around the hernia defect using scissors with electrocautery and then this was removed and sent to the lab for pathology. No other intra-abdominal abnormalities were noted. Description of Procedure Procedure as well as risks, benefits, and alternatives were discussed with the patient. Written consent was obtained and placed in chart prior to procedure. Patient was brought back to surgical suite. She was placed supine on operating table. Time-out was done to confirm patient and procedure. She was then intubated by the anesthesia department. A bump was placed under her left hip, and the bed was flexed slightly to extend the space between her costal margin and iliac crest. Her abdomen was prepped and draped in sterile fashion using chlorhexidine prep. A 5 millimeter incision was made in the left upper quadrant, and a 5 millimeter Optiview trocar was advanced through the abdominal layers under direct visualization. Once inside the abdominal cavity, carbon dioxide insufflation was used to create a pneumoperitoneum. Her abdomen was inspected. An 8 millimeter incision was made in the left lower quadrant, and an 8 millimeter robotic trocar was placed under direct visualization. Another 8 millimeter incision was made in the left lateral abdomen, and an 8 millimeter robotic trocar was placed under direct visualization. 0.5% bupivacaine with epinephrine was infiltrated around each port site. The 5 millimeter port was removed, and an 8 mm robotic trocar was placed under direct visualization. The robotic arms were brought up to the patient's bedside and secured to the ports. The camera and instruments were inserted, and I then moved over to the robotic console and took control of the camera and instruments. After careful thorough inspection of the abdominal cavity, I began my dissection at the hernia. The hernia sac and preperitoneal fat was excised from the hernia defect using scissors with electrocautery. The falciform ligament was also taken down far enough cephalad to allow for mesh placement using scissors with electrocautery. I then measured the hernia size. The hernia measured 3 cm. The fascia was closed using an 0-Stratafix running suture in a vertical fashion. A Ventralight ST 15 cm x 10 cm mesh was then placed within the abdominal cavity. This was oriented vertically with the mesh centered on the hernia defect. The mesh was then secured at the center and 4 corners using 3-0 Vicryl simple interrupted sutures. The perimeter of the mesh was then secured to the abdominal wall using 2-0 Stratafix running absorbable suture. The repair was inspected, and one final inspection was made around the abdominal cavity. The hernia sac and preperitoneal fat was placed in an Endo-Catch bag and removed through the
--- NOTE | 2023-11-11 09:39 | SUR.PHASEI ---
0930: Bag valve masked used for about 5 minutes or so to increase O2 sats from 88% to 97%.
[2023-11-11] MEDS: ONDANSETRON INJ 4 MG/2 ML VIAL IV PUSH (09:55)
[2023-11-11] MEDS: SCOPOLAMINE 1 MG PATCH 1 PATCH TRANSDERM (10:14)
[2023-11-11] MEDS: PROMETHAZINE HCL 25 MG/ML AMPUL 12.5 MG IV PUSH (10:14)
[2023-11-11] MEDS: oxyCODONE HCL (*CRX) 5 MG TAB IR PO (11:27)
== END 2023-11-11 12:45 | disposition home or self-care (01) ==
PROVIDERS: PCP Physician Assistant Medical; Visit Provider Surgery
PROC: (CPT 49593; principal; 2023-11-11 07:30)
DX: K43.9 Ventral hernia without obstruction or gangrene (principal); E55.9 Vitamin D deficiency, unspecified; F41.9 Anxiety disorder, unspecified; E66.01 Morbid (severe) obesity due to excess calories; Z68.41 Body mass index [BMI] 40.0-44.9, adult
CPT/HCPCS: 49593; S2900; 88302; A9270; C1781; J0690; J1100; J1170; J1200; J1885; J2250; J2405; J2550; J2704; J3010; J7030; J7120

== ENCOUNTER 2024-09-24 13:29 | Emergency (ER) | payer OTHER, SELFPAY ==
--- NOTE | 2024-09-24 13:40 | ED.URI ---
HPI - URI/Sore Throat General Chief Complaint: Upper Respiratory Infection Stated Complaint: Upper Respiratory Infection / LT Ear Clogged Time Seen by Provider: 09/24/24 13:41 Source: patient Mode of arrival: ambulatory Limitations: no limitations History of Present Illness HPI Narrative: 44-year-old female presents with complaint of nasal congestion, sinus pressure, sinus headaches, postnasal drainage for the past 2 weeks. It is pressure to left ear for approximately 2 weeks. Decreased hearing for the past 3 days. Has tried [id number] Mucinex with no relief of symptoms. All systems reviewed and negative except as noted above. Related Data Home Medications ?Medication ?Instructions ?Recorded ?Confirmed ?Last Taken ?Type ergocalciferol (vitamin D2) 1,000 50 mcg PO DAILY 11/02/23 02/11/24 11/04/23 History unit capsule Allergies Allergy/AdvReac Type Severity Reaction Status Date / Time erythromycin base Allergy Mild Rash Verified 09/24/24 13:58 Sulfa (Sulfonamide Allergy Mild Rash Verified 09/24/24 13:58 Antibiotics) codeine AdvReac Intermediate Vomiting Verified 09/24/24 13:58 vancomycin AdvReac Intermediate Vomiting Verified 09/24/24 13:58 loratadine AdvReac Mild Dizziness Verified 09/24/24 13:58 Review of Systems Review of Systems: CONSTITUTIONAL: Denies fever, chills, or sweats. EYES: Denies visual changes, redness, or discharge. ENT: Reports rhinorrhea, congestion, sinus pressure, postnasal drainage, left ear pain. Denies sore throat CARDIOVASCULAR: Denies chest pain, palpitations, or edema. RESPIRATORY: Denies cough or dyspnea. GASTROINTESTINAL: Denies abdominal pain, nausea, vomiting, or diarrhea. GENITOURINARY: Denies dysuria or hematuria. SKIN: Denies rash or itching. MUSCULOSKELETAL: Denies back pain, joint pain, or myalgia. NEUROLOGIC: Denies headache, numbness, or weakness. PSYCHIATRIC: Denies anxiety or depression. All other systems reviewed are negative, except as documented in HPI. REPLACED BY [facility] Past Medical History Medical History ROX positive (~11/2018) Anxiety Bulging lumbar disc History of COVID-19 08/2022 Inflammatory arthritis Irritable bowel Kidney stone Low back pain Renal cyst, acquired, left Ulcerative colitis Vaginal delivery x1 Vitamin D deficiency Surgical History Surgical History H/O ventral hernia repair 11/11/23 Laparoscopic 3 cm ventral hernia repair with mesh, da Domingo assisted History of cholecystectomy History of placement of ear tubes History of tonsillectomy Family History Family History Father Family history of malignant neoplasm of brain Grandparent Family history of malignant neoplasm of brain Mother Diabetes mellitus Rheumatoid arthritis Osteoarthritis Hypertension Sibling Hypertension Social History Social History Smoking status: Never smoker Second hand tobacco smoke exposure: No Alcohol intake: current Alcohol use details: rarely Substance use: never Substance use type: does not use Do You Feel Safe in your Home?: Yes Lack of Transportation: No Lack of Food: Never True Current Housing: I Have Housing Concerned About Future Housing: No Difficulty Paying Gas/Electric Bills: No Difficulty Paying for Meds: No Currently Unemployed: No Education: Associate Degree Difficulty w/ Childcare or Family Care: No Living arrangements: with family Occupation/Education: occupation 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 There is no relevant family history pertinent to the presenting complaint. Exam Narrative: GENERAL: This is a well-nourished, well-developed patient, in no apparent distress. HEAD: normocephalic, atraumatic. EYES: PERRL. Sclera clear/white. Vision is grossly intact. EARS: External ears normal, right ear canal normal. Left ear canal soft LO cerumen. After irrigation left TM is erythematous and retracted. Right TM is normal. No perforation bilaterally. NOSE: External nose normal with congestion, purulent nasal drainage, erythema swelling to bilateral nares THROAT: Mucous membranes moist, posterior pharynx clear. NECK: Neck supple, non-tender without lymphadenopathy, masses or thyromegaly. CARDIOVASCULAR: Regular rate and rhythm without murmurs, gallops, or rubs. RESPIRATORY: Clear to auscultation. Breath sounds equal bilaterally. No wheezes, rales, or rhonchi. SKIN: warm, Dry, intact with no suspicious lesions or rash, good texture and turgor. NEURO: awake, alert, and oriented to person, place and time. There were no obvious focal neurologic abnormalities. EXTREMITIES: No joint tenderness, effusion, or edema noted. Course Course Level of Care: Express Care Visit Vital Signs Vital signs: Reviewed Procedures Ear Wax Removal Left Ear: Ear Wax Removal Date: 09/24/24 Ear Wax Removal Time: 14:00 Results: Re-examined: cerumen removed completely TM Examination: TM(s) erythematous Patient Tolerated Procedure: well Complications: no problems Technique: ear canal irrigated (Warm water) MDM - URI/Sore Throat MDM Narrative Medical decision making narrative: Will treat patient with antibiotic for bacterial sinusitis, left otitis media. Recommend ohlg-fzm-rtoepdo antihistamine daily. Will give pseudoephedrine for nasal can not decongestant. Patient is well-appearing, nontoxic. Discharge Plan Discharge Clinical Impression: Acute left otitis media, Hearing loss of left ear due to cerumen impaction, Acute bacterial sinusitis Patient Disposition: Home Condition: Stable Instructions: Antibiotic Form, Earache (ED) Additional Instructions: Take medications as prescribed. Taking cvbl-unt-dihjmor antihistamine daily such as Xyzal or Zyrtec. Take ibuprofen or Tylenol every 6-8 hours as needed for pain. Drink at least 64 oz of water a day. Place cool mist humidifier in bedroom where you sleep. Follow-up with your doctor if symptoms are not improving. Patient Language: Indonesian Prescriptions: New amoxicillin 875 mg tablet 875 mg PO Q12H 10 Days Qty: 20 0RF pseudoephedrine HCl 30 mg tablet 30 mg PO Q4-6H PRN (Reason: nasal congestion) Qty: 20 0RF Rx Instructions: DNExceed 4 doses/24h fluticasone propionate [Flonase Allergy Relief] 50 mcg/actuation spray,suspension 1 spray intranasal BID Qty: 16 0RF Rx Instructions: administer into each nostril No Action albuterol sulfate 90 mcg/actuation HFA aerosol inhaler 1 inh inhalation Q4H PRN (Reason: shortness of breath or wheezing) Qty: 8.5 0RF ergocalciferol (vitamin D2) 1,000 unit Capsule 50 mcg PO DAILY Slynd 4 mg (28) tablet 4 mg PO DAILY Qty: 84 2RF sertraline 50 mg tablet See Rx Instructions .ROUTE .COMPLEX Qty: 90 2RF Dose Instruction: TAKE 1 TABLET BY MOUTH DAILY Patient Comments: patient takes HS Rx Instructions: TAKE 1 TABLET BY MOUTH DAILY Follow-up/Referrals: Asha Dang MD [Primary Care Provider] - Time of Disposition: 14:11
[2024-09-24 13:45] VITALS: BP 109/81; PULSE 100; RESP 16; TEMP 36; O2SAT 97
== END 2024-09-24 14:21 | disposition home or self-care (01) ==
PROVIDERS: Emergency Provider Nurse Practitioner Family; PCP Family Medicine
DX: H66.92 Otitis media, unspecified, left ear (principal); H61.22 Impacted cerumen, left ear; J01.90 Acute sinusitis, unspecified; M19.90 Unspecified osteoarthritis, unspecified site; E55.9 Vitamin D deficiency, unspecified; F41.9 Anxiety disorder, unspecified
CPT/HCPCS: 69209; 99213; G0463

== ENCOUNTER 2024-12-12 09:51 | Outpatient (CLI) | payer OTHER, SELFPAY ==
--- OUTSIDE RECORDS SUMMARY | 2024-12-12 10:01 | XMS_ITS | Clinical Summary ---
Author Organization [facility] [address] [address] Phone Care Team Providers Care Cement Finisher Helper Name Role Phone Unavailable Primary Care Provider Unavailabl e Social History Tobacco Use Types Packs/Day Years Used Date Smoking Tobacco: Never Assessed Comments Unknown Sex and Gender Information Value Date Recorded Sex Assigned at Not on file Legal Sex Female 10:14 AM CDT Gender Identity Not on file Sexual Orientation Not on file Plan of Treatment Health Maintenance Due Date Last Done Comments HPV VACCINES (1 - 3-dose series) 07/02/1994 DTAP/TDAP/TD VACCINES (1 - Tdap) 07/02/1998 HEPATITIS B VACCINES (1 of 3 - 19+ 3-dose series) 05/1998 HPV/Cotest (21-29) 07/02/2000 CERVICAL CANCER SCREENING 07/02/2009 HPV/Cotest (30-65) 07/02/2009 PAP SMEAR 07/02/2009 BREAST CANCER SCREENING 2019 COLORECTAL SCREENING 07/02/2024 Colorectal Cancer Screening 07/02/2024 FIT-DNA Q 3 years 07/02/2024 FIT/FOBT Q 1 year 07/02/2024 Flex Sig/CT Colonography Q 5 years 07/02/2024 INFLUENZA VACCINE (#1) [address] [facility] [employer] PPO [id number]
--- OUTSIDE RECORDS SUMMARY | 2024-12-12 10:01 | XMS_ITS | Clinical Summary ---
Author Organization [facility] Address [address] [place] [id number] Care Team Providers Care Show Card Letterer Name Role Phone No, Physician Primary Care Provider [phone] Allergies Active Allergy Reactions Criticality Noted Date Comments Codeine Nausea & Vomiting Low 02/01/2009 vomit Erythromycin Nausea & Vomiting Low 02/01/2009 rash Sulfa (Sulfonamide Antibiotics) Rash Medium 01/02 Medications ergocalciferol (VITAMIN D) 50,000 unit capsule TK ONE C PO WEEKLY 12/22/2019 Active sertraline (ZOLOFT) 50 mg tablet TK 1 T PO QD 12/17/2019 Active norethindrone (MICRONOR) 0.35 mg tablet Take by mouth Active norethindrone ac-eth estradioL (MICROGESTIN 05/23) 1-20 mg-mcg per tablet Take 1 tablet by mouth daily 12/18/2020 Active Active Problems Problem Noted Date Diagnosed Date Tinea versicolor 01/13/2020 Abnormal mammogram of both breasts 01/13/2020 Surgical History Surgery Date Site/Laterality Comments TONSILLECTOMY 05/04/1998 - 05/03/1999 CHOLECYSTECTOMY 05/04/2007 - 05/03/2008 TYMPANOSTOMY TUBE PLACEMENT 05/04/1980 - 05/03/1981 BREAST BIOPSY 01/23/2020 Right Medical History Medical History Date Comments Depression Headache Overweight Arthritis Tinea versicolor Family History Medical History Relation Name Comments blastoma Father Other, glioblastoma Paternal Grandfather Relation Name Status Comments Father Paternal Grandfather Social History Tobacco Use Types Packs/Day Years Used Date Smoking Tobacco: Never Personal Safety Answer Date Recorded Getting School Help Needed Not on file 07/16 Comments Unknown Sex and Gender Information Value Date Recorded Sex Assigned at Not on file 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 Gender Identity Not on file Sexual Orientation Not on file Obstetrics History Last Filed Vital Signs Vital Sign Reading Time Taken Comments Blood Pressure - - Pulse - - Temperature - - Respiratory Rate - - Oxygen Saturation - - Inhaled Oxygen Concentration - - Weight 88.5 kg (195 lb 1.7 oz) 12/28/2020 7:30 A M CDT Height 160 cm (5' 3) 12/28/2020 7:30 AM CDT Body Mass Index 34.56 12/28/2020 7:30 AM CDT Plan of Treatment Health Maintenance Due Date Last Done Comments Cervical Cancer Screening 1979 Colon Cancer Screening-Colonoscopy 1979 Depression Screening 1979 Hepatitis C Screening 1979 DTaP/Tdap/Td Vaccine (1 - Tdap) 07/02/1990 Varicella Vaccines (1 of 2 - 13+ 2-dose series) 07/02/1992 Regular Well Visit/Exam 18-64 07/02/1997 HPV Vaccines (1 - 3-dose SCD M series) 07/02/2006 Breast Cancer Screening-Mammogram 12/28/2021 12/28/2020 Covid-19 Vaccine (2023-2 5 season) 2024 07/28/2021, 01/22/2021, 12/21/2020 Influenza Vaccine (#1) 2025 03/19/2021 Hepatitis B Screening Completed 11/04/1995 , 10/07/1995 Pneumococcal vaccine <65 Aged Out No longer eligible based on patient's age to complete this topic Procedures Procedure Name Priority Date/Time Associated Diagnosis Comments DIAGNOSTIC MAMMOGRAM BILATERAL W JASBIR Schedule Routine, Read Routine (OP Routine) 12/28/2020 9:09 AM CDT Abnormal mammogram of both breasts from Last 3 Months or Most Recently Relevant to Health Maintenance Results * Diagnostic Mammogram Bilateral W Jasbir (12/28/2020 9:09 AM CDT) Anatomical Region Laterality Modality Breast Bilateral Mammography 12/28/2020 9:25 AM CDT Impressions 12/28/2020 9:29 AM CDT 1. Scattered calcifications throughout both breasts, as well as microcalcifications surrounding cork shaped postbiopsy tissue markers from prior stereotactic guided biopsy are stable dating back to 12/24/2019. These findings are probably benign and a 12 month follow-up diagnostic bilateral mammogram is recommended to document 2 years of stability. OVERALL FINAL ASSESSMENT: BI-RADS Category 3: Probably Benign. RECOMMENDATION: Recommend follow-up diagnostic breast imaging in 12 months. Dictated by: Drake Newman M.D. The radiology attending physician has personally reviewed this study, and had reviewed and/or edited this written report and agrees with it. Electronically signed by: GEORGIANA MARTINEZ MD Narrative 12/28/2020 9:29 AM CDT EXAMINATION: BILATERAL DIGITAL DIAGNOSTIC MAMMOGRAM INCLUDING CAD AND BILATERAL DIGITAL BREAST TOMOSYNTHESIS HISTORY: 40-year-old female who underwent bilateral stereotactic guided biopsies in January 2020 with benign pathology for which a six-month follow-up diagnostic mammogram was recommended. The patient elected to return in 12 months, and is now due for her annual mammogram. COMPARISON: Bilateral stereotactic biopsy post-clip mammograms 01/23/2020, bilateral diagnostic mammogram 12/24/2019 and prior screening mammograms dating back to 08/18/2012. TECHNIQUE: Full field digital mammographic views of BOTH breasts were performed, including computer aided detection (CAD) and BILATERAL digital breast tomosynthesis (DBT). BREAST PARENCHYMAL COMPOSITION: The breasts are heterogenously dense, which may obscure small masses. MAMMOGRAM FINDINGS: There are scattered predominantly round and punctate calcifications throughout both breasts that appear similar to the prior study. Microcalcifications surrounding Cork-shaped biopsy tissue markers in both breasts appears similar to the prior exam. 2 oval circumscribed masses in the upper outer left breast are unchanged and likely represent intramammary lymph nodes. Prominent right axillary lymph nodes are stable dating back to 12/24/2019. There is no new suspicious mass or architectural distortion in either breast. Procedure Note Georgiana Martinez MD - 12/28/2020 EXAMINATION: BILATERAL DIGITAL DIAGNOSTIC MAMMOGRAM INCLUDING CAD AND BILATERAL DIGITAL BREAST TOMOSYNTHESIS HISTORY: 40-year-old female who underwent bilateral stereotactic guided biopsies in January 2020 with benign pathology for which a six-month follow-up diagnostic mammogram was recommended. The patient elected to return in 12 months, and is now due for her annual mammogram. COMPARISON: Bilateral stereotactic biopsy post-clip mammograms 01/23/2020, bilateral diagnostic mammogram 12/24/2019 and prior screening mammograms dating back to 08/18/2012. TECHNIQUE: Full field digital mammographic views of BOTH breasts were performed, including computer aided detection (CAD) and BILATERAL digital breast tomosynthesis (DBT). BREAST PARENCHYMAL COMPOSITION: The breasts are heterogenously dense, which may obscure small masses. MAMMOGRAM FINDINGS: There are scattered predominantly round and punctate calcifications throughout both breasts that appear similar to the prior study. Microcalcifications surrounding Cork-shaped biopsy tissue markers in both breasts appears similar to the prior exam. 2 oval circumscribed masses in the upper outer left breast are unchanged and likely represent intramammary lymph nodes. Prominent right axillary lymph nodes are stable dating back to 12/24/2019. There is no new suspicious mass or architectural distortion in either breast. IMPRESSION: 1. Scattered calcifications throughout both breasts, as well as microcalcifications surrounding cork shaped postbiopsy tissue markers from prior stereotactic guided biopsy are stable dating back to 12/24/2019. These findings are probably benign and a 12 month follow-up diagnostic bilateral mammogram is recommended to document 2 years of stability. OVERALL FINAL ASSESSMENT: BI-RADS Category 3: Probably Benign. RECOMMENDATION: Recommend follow-up diagnostic breast imaging in 12 months. Dictated by: Drake Newman M.D. The radiology attending physician has personally reviewed this study, and had reviewed and/or edited this written report and agrees with it. Electronically signed by: GEORGIANA MARTINEZ MD Giselle Montejo NP IMG MAMMO PROCEDURES Fin al Result from Last 3 Months or Most Recently Relevant to Health Maintenance Insurance [facility] [employer] Address: [address] [address] Care Teams Show Card Letterer Relationship Specialty Start Date End Date No, Physician PCP - General 12/30/19
--- OUTSIDE RECORDS SUMMARY | 2024-12-12 10:01 | XMS_ITS | Clinical Summary ---
Author Organization [facility] Address [address], [place] [address] Phone Care Team Providers Care Vice President Commercial Bank Name Role Phone Asha Dang MD Primary Care Provider [phone] Allergies Active Allergy Reactions Criticality Noted Date Comments Codeine Nausea And Vomiting Low 02/01/2009 vomit vomit Erythromycin Nausea And Vomiting Low 02/01/2009 rash rash Loratadine 02/01/2009 Dizzy/nausea Sulfa Antibiotics Rash Medium 01/12/2020 Medications ergocalciferol (VITAMIN D2) 1.25 MG (17167 UT) capsule Take 50,000 Units by mouth 1 (one) time per week 10/15/2021 Active norethindrone-et hinyl estradiol (MICROGESTIN 05/23) 1-20 MG-MCG per tablet Take 1 tablet by mouth 1 (one) time each day 10/14/2021 Active sertraline (ZOLOFT) 50 MG tablet Take 50 mg by mouth 1 (one) time each day 10/15/2021 Active Active Problems Problem Noted Date Diagnosed Date Blood in urine 11/07/2021 Simple renal cyst 11/07/2021 Serum cholesterol raised 02/01/2009 Overview (10/30/2021): Family History Medical History Relation Comments Kidney disease Neg Hx Social History Tobacco Use Types Packs/Day Years Used Date Smoking Tobacco: Never Smokeless Tobacco: Never Alcohol Use Standard Drinks/Week Comments Yes 0 (1 standard drink = 0.6 oz pur e alcohol) rare Comments Unknown Sex and Gender Information Value Date Recorded Sex Assigned at Not on file Legal Sex Female 12:34 PM MDT Gender Identity Not on file Sexual Orientation Not on file Last Filed Vital Signs Vital Sign Reading Time Taken Comments Blood Pressure 126/84 11/07/2021 11:09 AM CDT Pulse 84 11/07/2021 11:09 AM CDT Temperature 36.7 C (98 F) 11/07/2021 11:09 AM CDT Respiratory Rate - - Oxygen Saturation - - Inhaled Oxygen Concentration - - Weight 99.8 kg (220 lb) 11/07/2021 11:09 AM CDT Height 160 cm (5' 3) 11/07/2021 11:09 AM CDT Body Mass Index 38.97 11/07/2021 11:09 AM CDT Plan of Treatment Health Maintenance Due Date Last Done Comments Influenza Vaccine (#1) 2025 Insurance Care Teams Vice President [employer] Relationship Specialty Start Date End Date Asha Dang MD [address] [place] [address] PCP - General Internal Medicine 10/07/21
--- OUTSIDE RECORDS SUMMARY | 2024-12-12 10:01 | XMS_ITS | Clinical Summary ---
Author Organization [facility] Address [address] [place] [address] Care Team Providers Care Staff Interpreter Name Role Phone Simone Agosto MD Primary Care Provider + [phone] Source Comments [facility],non-owned Affiliates and Associated Physician Practices is amultiple site organization consisting of ambulatory clinics and hospital sitesin [place], [place], [place] and [place]. This disclosure is being madepursuant to the Care Everywhere program and may not contain all information available regarding this patient. Last updated 18.[facility] Allergies Active Allergy Reactions Criticality Noted Date Comments Claritin 02/01/2009 Dizzy/nausea Codeine 02/01/2009 vomit Erythromycin 02/01/2009 rash Medications * Be aware that medications may not be up to date on this document. Alwaysverify current medications with the patient. Norethindrone (NORLYDA PO) Active SERTRALINE HCL PO Ac tive Cholecalciferol (VITAMIN D PO) Activ e Active Problems Problem Noted Date Diagnosed Date Colitis 02/01/2009 Gastritis 02/01/2009 Screening for condition 02/01/2009 Overview (02/01/2015): Pap Smear Colonoscopy 2007 Elevated serum cholesterol 02/01/2009 Overview (09/25/2014): Family History Medical History Relation Name Comments Cancer Father Hypercholesterolemia Father Hypertension Father Asthma Maternal Grandmother Diabetes Maternal Grandmother Heart Disease Maternal Grandmother Arthritis Mother Diabetes - Type 2 Mother Hypertension Mother Cancer Paternal Grandmother Diabetes Paternal Grandmother Migraine Sister Relation Name Status Comments Father Maternal Grandmother Mother Paternal Grandmother Sister Social History Tobacco Use Types Packs/Day Years Used Date Smoking Tobacco: Never Smokeless Tobacco: Never Alcohol Use Standard Drinks/Week Comments Yes 0 (1 standard drink = 0.6 oz pur e alcohol) socially Comments No Sex and Gender Information Value Date Recorded Sex Assigned at Not on file Legal Sex Female 6:27 AM REHABILITATION TEAM LEAD Gender Identity Not on file Sexual Orientation Not on file Last Filed Vital Signs Vital Sign Reading Time Taken Comments Blood Pressure 108/70 03/20/2019 9:36 AM REHABILITATION TEAM LEAD Pulse 78 03/20/2019 9:36 AM REHABILITATION TEAM LEAD Temperature 37.1 C (98.7 F) 03/20/2019 9:36 AM REHABILITATION TEAM LEAD Respiratory Rate 16 03/20/2019 9:36 AM REHABILITATION TEAM LEAD Oxygen Saturation 96% 03/20/2019 9:36 AM REHABILITATION TEAM LEAD Inhaled Oxygen Concentration - - Weight 86.2 kg (190 lb) 03/20/2019 9:36 AM REHABILITATION TEAM LEAD Height 160 cm (5' 3) 03/20/2019 9:36 AM REHABILITATION TEAM LEAD Body Mass Index 33.66 03/20/2019 9:36 AM REHABILITATION TEAM LEAD Plan of Treatment Health Maintenance Due Date Last Done Comments COLOGUARD (AGES 45-75) - COL ON CA SCREENING 1979 COLON MONITORING 1979 COLONOSCOPY - COLON CA SCREENING 1979 CT COLONOGRAPHY - COLON CA SCREENING 1979 Colorectal Cancer Screening 1979 FIT - COLON CA SCREENING 1979 FLEX SIG - COLON CA SCREENING 1979 LIPID TESTING 1979 MAMMOGRAM 1979 HIV SCREENING 07/02/1994 DTAP/TDAP/TD VACCINES (1 - Tdap) 07/02/1998 HEPATITIS B VACCINE (1 of 3 - 19+ 3-dose series) 07/02/1998 HPV VACCINE (1 - 3-dose SCDM series) 07/02/2006 PAP SMEAR 05/15/2011 05/15/2008 COVID-19 VACCINE (2023-2 5 season) 2024 DEPRESSION SCREENING 05/04/2024 INFLUENZA VACCINE (#1) 2025 ZOSTER VACCINE (1 of 2) 07/02/2029 HEPATITIS C SCREENING Completed 10/06/2008 HIB VACCINE Aged Out No longer eligi ble based on patient's age to complete this topic MENINGOCOCCAL (Group B) VACC INE SHARED DECISION-MAKING Aged Out No longer eligibl e based on patient's age to complete this topic MENINGOCOCCAL GROUPS A/C/Y/W VACCINE Aged Out No longer eligible b ased on patient's age to complete this topic PNEUMOCOCCAL VACCINE Aged Out No long er eligible based on patient's age to complete this topic Procedures Procedure Name Priority Date/Time Associated Diagnosis Comments HEPATITIS C ANTIBODY W/REFLEX RIBA 10/06/2008 10:56 AM CDT PAP SMEAR 1 SLIDE Routine 05/15/2008 from Last 3 Months or Most Recently Relevant to Health Maintenance Results * HEPATITIS C RIBA (10/06/2008 10:56 AM CDT) Hepatitis C Virus Antibody S/CO Ratio <0.1 0.0 - 0.9 s/co ratio [facility] ACCOUNT BILL Comment: Negative Not infected with HCV, unless recent infection is suspected or other evidence exists to indicate HCV infection. 10/06/2008 10:5 6 AM CDT 10/06/2008 6:08 PM CDT Narrative Resulting Agency Comment [facility] [address] [facility] [id number] Danny Hosuton MD LAB - CHEMISTRY ORDERABLES Final Result Performing Organization Address City/[facility] Co de Phone Number [facility] ACCOUNT BILL [address] [place] [address] * PAP SMEAR 1 SLIDE (05/15/2008) Other (qualifier value) 05/15/2008 Narrative [facility] - 03/01/2009 9:35 AM CDT This external order was created through the Results Console. 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 10/02/2012 Insurance [facility] * Guarantor: ISABEL GUEVARA Account Type Relation to Patient Date of Phone Billing Address Personal/Family [address] [place] [address] SELF PAY NO INSURANCE Member Subscriber Plan / Payer (Ef fective for All Dates) Name:Isabel Guevara Member ID:Not on file Relation to Subscriber:Not on file Name:ISABEL GUEVARA Subscriber ID:Not on file Address: [address] [place] [address] Payer ID:Not on file Group ID:Not on file Type:Self Pay Address: [facility] Member Subscriber Plan / Payer (Ef fective 2024-Present) Name:Isabel Guevara Relation to Subscriber:Self Name:Isabel Guevara Payer ID:[id number] (NAIC) Type:PPO Address: [address] * Guarantor: ISABEL GUEVARA Account Type Relation to Patient Date of Phone Billing Address Personal/Family [address] [place] [address] SELF PAY NO INSURANCE Member Subscriber Plan / Payer (Ef fective for All Dates) Name:Isabel Guevara Member ID:Not on file Relation to Subscriber:Not on file Name:ISABEL GUEVARA Subscriber ID:Not on file Address: [address] [place] [address] Payer ID:Not on file Group ID:Not on file Type:Self Pay Address: [facility] * Guarantor: ISABEL GUEVARA Account Type Relation to Patient Date of Phone Billing Address Personal/Family [address] [place] [address] SELF PAY NO INSURANCE Member Subscriber Plan / Payer (Ef fective for All Dates) Name:Isabel Guevara Member ID:Not on file Relation to Subscriber:Not on file Name:ISABEL GUEVARA Subscriber ID:Not on file Address: [address] [place] [address] Payer ID:Not on file Group ID:Not on file Type:Self Pay Address: [facility] Care Teams Staff Interpreter Relationship Specialty Start Date End Date Simone Agosto MD [address] [facility] [place], [place] [id number] PCP - General Family Medicine 04/13/12
[2024-12-12 14:04] LABS: Beta HCG Quantitative 1679.80 mIU/ML
== END 2024-12-12 09:52 | disposition home or self-care (01) ==
LOC: ANHLAB 09:52
PROVIDERS: PCP Family Medicine; Visit Provider Nurse Practitioner Family
DX: O26.851 Spotting complicating pregnancy, first trimester (principal); Z3A.00 Weeks of gestation of pregnancy not specified
CPT/HCPCS: 36415; 84702

== ENCOUNTER 2024-12-14 12:25 | Outpatient (CLI) | payer OTHER, SELFPAY ==
--- OUTSIDE RECORDS SUMMARY | 2024-12-14 12:28 | XMS_ITS | Clinical Summary ---
Author Organization [employer] Richard escobedo 2022 Address [address] [address] Phone Care Team Providers Care Merchandising Team Lead Name Role Phone Unavailable Primary Care Provider [...] years 07/02/2024 INFLUENZA VACCINE (#1) 2024 Insurance [facility] OPTIONS PPO [id number]
--- OUTSIDE RECORDS SUMMARY | 2024-12-14 12:28 | XMS_ITS | Clinical Summary ---
Author Organization [facility] Address [address] [place] [address] Care Team Providers Care Machine Or Machinery Mechanic Name Role Phone Simone Agosto MD Primary Care Provider + [phone] Source Comments [facility],non-owned Affiliates and Associated Physician Practices is amultiple site organization consisting of ambulatory clinics and hospital sitesin [place], [place], [place] and [place]. This disclosure is being madepursuant to the Care Everywhere program and may not contain all information available regarding this patient. Last updated 18.[facility] Allergies Active Allergy Reactions Criticality Noted Date [...] on file Legal Sex Female 6:27 AM EMERGENCY CARE TECH Gender Identity Not on file Sexual Orientation Not on file Last Filed Vital Signs Vital Sign Reading Time Taken Comments Blood Pressure 108/70 03/20/2019 9:36 AM EMERGENCY CARE TECH Pulse 78 03/20/2019 9:36 AM EMERGENCY CARE TECH Temperature 37.1 C (98.7 F) 03/20/2019 9:36 AM EMERGENCY CARE TECH Respiratory Rate 16 03/20/2019 9:36 AM EMERGENCY CARE TECH Oxygen Saturation 96% 03/20/2019 9:36 AM EMERGENCY CARE TECH Inhaled Oxygen Concentration - - Weight 86.2 kg (190 lb) 03/20/2019 9:36 AM EMERGENCY CARE TECH Height 160 cm (5' 3) 03/20/2019 9:36 AM EMERGENCY CARE TECH Body Mass Index 33.66 03/20/2019 9:36 AM EMERGENCY CARE TECH Plan of Treatment Health Maintenance Due Date [...] CDT Narrative Resulting Agency Comment [facility] [address] [facility] [id number] Danny Houston MD LAB - CHEMISTRY ORDERABLES Final Result Performing Organization Address City/[facility] Co de Phone Number [facility] ACCOUNT BILL [address] [place] [address] * PAP SMEAR 1 SLIDE (05/15/2008) Other (qualifier value) 05/15/2008 Narrative [facility] - 03/01/2009 9:35 AM CDT This external order was created through the Results Console. 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 10/02/2012 Insurance [facility] * Guarantor: ISABEL GUEVARA Account Type Relation to Patient Date of Phone Billing Address Personal/Family [address] [place] [address] SELF PAY NO INSURANCE Member Subscriber Plan / Payer (Ef fective for All Dates) Name:Isabel Guevara Member ID:Not on file Relation to Subscriber:Not on file Name:ISABEL GUEVARA Subscriber ID:Not on file Address: [address] [place] [address] Payer ID:Not on file Group ID:Not on file Type:Self Pay Address: [facility] Member Subscriber Plan / Payer (Ef fective 2024-Present) Name:Isabel Guevara Relation to Subscriber:Self Name:Isabel Guevara Payer ID:[id number] (NAIC) Type:PPO Address: [address] * Guarantor: ISABEL GUEVARA Account Type Relation to Patient Date of Phone Billing Address Personal/Family [address] [place] [address] SELF PAY NO INSURANCE Member Subscriber Plan / Payer (Ef fective for All Dates) Name:Isabel Guevara Member ID:Not on file Relation to Subscriber:Not on file Name:ISABEL GUEVARA Subscriber ID:Not on file Address: [address] [place] [address] Payer ID:Not on file Group ID:Not on file Type:Self Pay Address: [facility] * Guarantor: ISABEL GUEVARA Account Type Relation to Patient Date of Phone Billing Address Personal/Family [address] [place] [address] SELF PAY NO INSURANCE Member Subscriber Plan / Payer (Ef fective for All Dates) Name:Isabel Guevara Member ID:Not on file Relation to Subscriber:Not on file Name:ISABEL GUEVARA Subscriber ID:Not on file Address: [address] [place] [address] Payer ID:Not on file Group ID:Not on file Type:Self Pay Address: [facility] Care Teams Machine Or Machinery Mechanic Relationship Specialty Start Date End Date Simone Agosto MD [address] [facility] [place], [place] [phone] PCP - General Family Medicine 04/13/12
--- OUTSIDE RECORDS SUMMARY | 2024-12-14 12:28 | XMS_ITS | Clinical Summary ---
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
--- OUTSIDE RECORDS SUMMARY | 2024-12-14 12:28 | XMS_ITS | Clinical Summary ---
Author Organization [facility] Address [address] [place] [address] Phone Care Team Providers Care Shipping Manager Name Role Phone Asha Dang MD Primary Care Provider [phone] Allergies Active Allergy Reactions Criticality Noted Date Comments Codeine Nausea And Vomiting Low 02/01/2009 vomit vomit Erythromycin Nausea And Vomiting Low 02/01/2009 rash rash Loratadine 02/01/2009 Dizzy/nausea Sulfa Antibiotics Rash Medium 01/12/2020 Medications ergocalciferol (VITAMIN D2) 1.25 MG (38050 UT) capsule Take 50,000 Units by mouth [...] Influenza Vaccine (#1) 2025 Insurance Care Teams Shipping Manager Relationship Specialty Start Date End Date Asha Dang MD [address] [place] [address] PCP - General Internal Medicine 10/07/21
[2024-12-14 13:33] LABS: Beta HCG Quantitative 1442.60 mIU/ML
== END 2024-12-14 12:26 | disposition home or self-care (01) ==
LOC: ANHLAB 12:26
PROVIDERS: PCP Family Medicine; Visit Provider Nurse Practitioner Family
DX: N89.8 Other specified noninflammatory disorders of vagina (principal)
CPT/HCPCS: 36415; 84702

== ENCOUNTER 2024-12-21 12:08 | Outpatient (CLI) | payer OTHER, SELFPAY ==
--- OUTSIDE RECORDS SUMMARY | 2024-12-21 12:19 | XMS_ITS | Clinical Summary ---
Author Organization [employer] Richard escobedo 2022 Address [address] [address] Phone Care Team Providers Care Wic Site Coordinator Name Role Phone Unavailable Primary Care Provider [...] 07/02/2024 INFLUENZA VACCINE (#1) 2024 Insurance [facility] OPTIONS PPO [id number]
--- OUTSIDE RECORDS SUMMARY | 2024-12-21 12:19 | XMS_ITS | Clinical Summary ---
Author Organization [facility] Address [address] [facility] [place] [address] Care Team Providers Care Railcar Foreman Name Role Phone Simone Agosto MD Primary Care Provider + [phone] Source Comments [facility],non-owned Affiliates and Associated Physician Practices is amultiple site organization consisting of ambulatory clinics and hospital sitesin [place], [place]. This disclosure is being madepursuant to the Care Everywhere program and may not contain all information available regarding this patient. Last updated 18.[facility] Allergies Active Allergy Reactions Criticality Noted Date [...] on file Legal Sex Female 6:27 AM HOG RAISER Gender Identity Not on file Sexual Orientation Not on file Last Filed Vital Signs Vital Sign Reading Time Taken Comments Blood Pressure 108/70 03/20/2019 9:36 AM HOG RAISER Pulse 78 03/20/2019 9:36 AM HOG RAISER Temperature 37.1 C (98.7 F) 03/20/2019 9:36 AM HOG RAISER Respiratory Rate 16 03/20/2019 9:36 AM HOG RAISER Oxygen Saturation 96% 03/20/2019 9:36 AM HOG RAISER Inhaled Oxygen Concentration - - Weight 86.2 kg (190 lb) 03/20/2019 9:36 AM HOG RAISER Height 160 cm (5' 3) 03/20/2019 9:36 AM HOG RAISER Body Mass Index 33.66 03/20/2019 9:36 AM HOG RAISER Plan of Treatment Health Maintenance Due Date [...] CDT Narrative Resulting Agency Comment [facility] [address] [facility] [id number] Danny Houston MD LAB - CHEMISTRY ORDERABLES Final Result Performing Organization Address City/[facility] Co de Phone Number [facility] ACCOUNT BILL [address] [place] [address] * PAP SMEAR 1 SLIDE (05/15/2008) Other (qualifier value) 05/15/2008 Narrative [facility] - 03/01/2009 9:35 AM CDT This external order was created through the Results Console. 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 10/02/2012 Insurance [facility] * Guarantor: ISABEL GUEVARA Account Type Relation to Patient Date of Phone Billing Address Personal/Family [address] [place] [address] SELF PAY NO INSURANCE Member Subscriber Plan / Payer (Ef fective for All Dates) Name:Isabel Guevara Member ID:Not on file Relation to Subscriber:Not on file Name:ISABEL GUEVARA Subscriber ID:Not on file Address: [address] [place] [address] Payer ID:Not on file Group ID:Not on file Type:Self Pay Address: [facility] Member Subscriber Plan / Payer (Ef fective 2024-Present) Name:Isabel Guevara Relation to Subscriber:Self Name:Isabel Guevara Payer ID:[id number] (NAIC) Type:PPO Address: [address] * Guarantor: ISABEL GUEVARA Account Type Relation to Patient Date of Phone Billing Address Personal/Family [address] [place] [address] SELF PAY NO INSURANCE Member Subscriber Plan / Payer (Ef fective for All Dates) Name:Isabel Guevara Member ID:Not on file Relation to Subscriber:Not on file Name:ISABEL GUEVARA Subscriber ID:Not on file Address: [address] [place] [address] Payer ID:Not on file Group ID:Not on file Type:Self Pay Address: [facility] * Guarantor: ISABEL GUEVARA Account Type Relation to Patient Date of Phone Billing Address Personal/Family [address] [place] [address] SELF PAY NO INSURANCE Member Subscriber Plan / Payer (Ef fective for All Dates) Name:Isabel Guevara Member ID:Not on file Relation to Subscriber:Not on file Name:ISABEL GUEVARA Subscriber ID:Not on file Address: [address] [place] [address] Payer ID:Not on file Group ID:Not on file Type:Self Pay Address: [facility] Address: [address] [address] Care Teams Railcar Foreman Relationship Specialty Start Date End Date Simone Agosto MD [address] [facility] [place], [place] [phone] PCP - General Family Medicine 04/13/12
--- OUTSIDE RECORDS SUMMARY | 2024-12-21 12:19 | XMS_ITS | Clinical Summary ---
Author Organization [facility] Address [address] [place] [address] Phone Care Team Providers Care Home Mortgage Disclosure Act Specialist Name Role Phone Asha Dang MD Primary Care Provider [phone] Allergies Active Allergy Reactions Criticality Noted Date Comments Codeine Nausea And Vomiting Low 02/01/2009 vomit vomit Erythromycin Nausea And Vomiting Low 02/01/2009 rash rash Loratadine 02/01/2009 Dizzy/nausea Sulfa Antibiotics Rash Medium 01/12/2020 Medications ergocalciferol (VITAMIN D2) 1.25 MG (26556 UT) capsule Take 50,000 Units by mouth [...] Influenza Vaccine (#1) 2025 Insurance Care Teams Home Mortgage Disclosure Act Specialist Relationship Specialty Start Date End Date Asha Dang MD [address] [place] [address] PCP - General Internal Medicine 10/07/21
--- OUTSIDE RECORDS SUMMARY | 2024-12-21 12:19 | XMS_ITS | Clinical Summary ---
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
[2024-12-21 13:03] LABS: Beta HCG Quantitative 87.87 mIU/ML
== END 2024-12-21 12:09 | disposition home or self-care (01) ==
PROVIDERS: Visit Provider Nurse Practitioner Family
DX: O03.9 Complete or unspecified spontaneous abortion without complication (principal)
CPT/HCPCS: 36415; 84702

== ENCOUNTER 2025-01-03 12:04 | Outpatient (CLI) | payer OTHER, SELFPAY ==
--- OUTSIDE RECORDS SUMMARY | 2025-01-03 12:10 | XMS_ITS | Clinical Summary ---
Author Organization [facility] Address [address] [place] [address] Care Team Providers Care Pet Stylist Name Role Phone No, Physician Primary Care Provider [phone] Allergies Active Allergy Reactions Criticality Noted Date [...] on file Legal Sex Female 5:31 AM PORTER USED CAR [employer] Gender Identity Not on file Sexual Orientation [...] Most Recently Relevant to Health Maintenance Insurance [facility] Care Teams Pet Stylist Relationship Specialty Start Date End Date No, Physician PCP - General 12/30/19
--- OUTSIDE RECORDS SUMMARY | 2025-01-03 12:10 | XMS_ITS | Clinical Summary ---
Author Organization [employer] Richard escobedo 2022 Address [address] [facility] [address] [place] [address] Phone Care Team Providers Care Lead Medical Technologist Name Role Phone Unavailable Primary Care Provider Unavailabl e Social History Tobacco Use Types Packs/Day Years Used Date Smoking Tobacco: Never Assessed Comments Unknown Sex and Gender Information Value Date Recorded Sex Assigned at Not on file Legal Sex Female 10:14 AM CDT Gender Identity Not on file Sexual Orientation Not on file Plan of Treatment Health Maintenance Due Date Last Done Comments DTAP/TDAP/TD VACCINES (1 - Tdap) 07/02/1998 HEPATITIS B VACCINES (1 of 3 - 19+ 3-dose series) 05/1998 HPV/Cotest (21-29) 07/02/2000 HPV VACCINES (1 - 3-dose SCDM series) 07/02/2006 CERVICAL CANCER SCREENING 07/02/2009 HPV/Cotest (30-65) 07/02/2009 PAP SMEAR 07/02/2009 BREAST CANCER SCREENING 2019 COLORECTAL SCREENING 07/02/2024 Colorectal Cancer Screening 07/02/2024 FIT-DNA Q 3 years 07/02/2024 FIT/FOBT Q 1 year 07/02/2024 Flex Sig/CT Colonography Q 5 years 07/02/2024 INFLUENZA VACCINE (#1) 2024 Insurance [facility] OPTIONS PPO [id number] [facility] Address: [facility] [address] [place] [address]
--- OUTSIDE RECORDS SUMMARY | 2025-01-03 12:10 | XMS_ITS | Clinical Summary ---
Author Organization [facility] Address [address] [place] [address] Care Team Providers Care Herb Doctor Name Role Phone Simone Agosto MD Primary Care Provider + [phone] Source Comments [facility],non-owned Affiliates and Associated Physician Practices is amultiple site organization consisting of ambulatory clinics and hospital sitesin [place], [place], [place] and [place]. This disclosure is being madepursuant to the Care Everywhere program and may not contain all information available regarding this patient. Last updated 18.[facility] Allergies Active Allergy Reactions Criticality Noted Date [...] on file Legal Sex Female 6:27 AM FITTING ROOM INSPECTOR Gender Identity Not on file Sexual Orientation Not on file Last Filed Vital Signs Vital Sign Reading Time Taken Comments Blood Pressure 108/70 03/20/2019 9:36 AM FITTING ROOM INSPECTOR Pulse 78 03/20/2019 9:36 AM FITTING ROOM INSPECTOR Temperature 37.1 C (98.7 F) 03/20/2019 9:36 AM FITTING ROOM INSPECTOR Respiratory Rate 16 03/20/2019 9:36 AM FITTING ROOM INSPECTOR Oxygen Saturation 96% 03/20/2019 9:36 AM FITTING ROOM INSPECTOR Inhaled Oxygen Concentration - - Weight 86.2 kg (190 lb) 03/20/2019 9:36 AM FITTING ROOM INSPECTOR Height 160 cm (5' 3) 03/20/2019 9:36 AM FITTING ROOM INSPECTOR Body Mass Index 33.66 03/20/2019 9:36 AM FITTING ROOM INSPECTOR Plan of Treatment Health Maintenance Due Date [...] CDT Narrative Resulting Agency Comment [facility] [address] [facility] [id number] Danny Houston MD LAB - CHEMISTRY ORDERABLES Final Result Performing Organization Address City/[facility] Co de Phone Number [facility] ACCOUNT BILL [address] [place] [address] * PAP SMEAR 1 SLIDE (05/15/2008) Other (qualifier value) 05/15/2008 Narrative [facility] - 03/01/2009 9:35 AM CDT This external order was created through the Results Console. 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 10/02/2012 Insurance [facility] * Guarantor: ISABEL GUEVARA Account Type Relation to Patient Date of Phone Billing Address Personal/Family [address] [place] [address] SELF PAY NO INSURANCE Member Subscriber Plan / Payer (Ef fective for All Dates) Name:Isabel Guevara Member ID:Not on file Relation to Subscriber:Not on file Name:ISABEL GUEVARA Subscriber ID:Not on file Address: [address] [place] [address] Payer ID:Not on file Group ID:Not on file Type:Self Pay Address: [facility] Member Subscriber Plan / Payer (Ef fective 2024-Present) Name:Isabel Guevara Relation to Subscriber:Self Name:Isabel Guevara Payer ID:[id number] (NAIC) Type:PPO Address: [address] * Guarantor: ISABEL GUEVARA Account Type Relation to Patient Date of Phone Billing Address Personal/Family [address] [place] [address] SELF PAY NO INSURANCE Member Subscriber Plan / Payer (Ef fective for All Dates) Name:Isabel Guevara Member ID:Not on file Relation to Subscriber:Not on file Name:ISABEL GUEVARA Subscriber ID:Not on file Address: [address] [place] [address] Payer ID:Not on file Group ID:Not on file Type:Self Pay Address: [facility] * Guarantor: ISABEL GUEVARA Account Type Relation to Patient Date of Phone Billing Address Personal/Family [address] [place] [address] SELF PAY NO INSURANCE Member Subscriber Plan / Payer (Ef fective for All Dates) Name:Isabel Guevara Member ID:Not on file Relation to Subscriber:Not on file Name:ISABEL GUEVARA Subscriber ID:Not on file Address: [address] [place] [address] Payer ID:Not on file Group ID:Not on file Type:Self Pay Address: [facility] Care Teams Herb Doctor Relationship Specialty Start Date End Date Simone Agosto MD [address] [facility] [address] [place], [place] [id number] PCP - General Family Medicine 04/13/12
--- OUTSIDE RECORDS SUMMARY | 2025-01-03 12:10 | XMS_ITS | Clinical Summary ---
Author Organization [facility] Address [address] [address] Phone Care Team Providers Care Family Readiness Support Assistant Name Role Phone Asha Dang MD Primary Care Provider [phone] Allergies Active Allergy Reactions Criticality Noted Date Comments Codeine Nausea And Vomiting Low 02/01/2009 vomit vomit Erythromycin Nausea And Vomiting Low 02/01/2009 rash rash Loratadine 02/01/2009 Dizzy/nausea Sulfa Antibiotics Rash Medium 01/12/2020 Medications ergocalciferol (VITAMIN D2) 1.25 MG (89507 UT) capsule Take 50,000 Units by mouth [...] Influenza Vaccine (#1) 2025 Insurance Care Teams Family Readiness Support Assistant Relationship Specialty Start Date End Date Asha Dang MD [address] [place] [address] PCP - General Internal Medicine 10/07/21
[2025-01-03 13:21] LABS: Beta HCG Quantitative < 2.39 mIU/ML
== END 2025-01-03 12:05 | disposition home or self-care (01) ==
LOC: ANHLAB 12:06
PROVIDERS: PCP Family Medicine; Visit Provider Nurse Practitioner Family
DX: O03.9 Complete or unspecified spontaneous abortion without complication (principal)
CPT/HCPCS: 36415; 84702

== ENCOUNTER 2025-04-12 13:03 | Emergency (ER) | payer OTHER, SELFPAY ==
--- NOTE | 2025-04-12 13:05 | ED.URI ---
HPI - URI/Sore Throat General Chief Complaint: Upper Respiratory Infection Stated Complaint: HEADACHE/SINUS/SORE THROAT/COUGH/BODY ACHES Time Seen by Provider: 04/12/25 13:04 Source: patient Mode of arrival: ambulatory Limitations: no limitations History of Present Illness HPI Narrative: Isabel is a 44 year old female patient presenting to the clinic today with c/o headache, sinus congestion, scratchy throat, nonproductive cough, and body aches x3 days. She denies any known fevers, chills, or body aches. Has been taking zyre-qaa-[id number] cough and cold medicine for her symptoms. Denies any chest pain or shortness of breath. MD elicited complaint: sore throat and nasal congestion Related Data Allergies Allergy/AdvReac Type Severity Reaction Status Date / Time erythromycin base Allergy Mild Rash Verified 04/12/25 13:20 Sulfa (Sulfonamide Allergy Mild Rash Verified 04/12/25 13:20 Antibiotics) codeine AdvReac Intermediate Vomiting Verified 04/12/25 13:20 vancomycin AdvReac Intermediate Vomiting Verified 04/12/25 13:20 loratadine AdvReac Mild Dizziness Verified 04/12/25 13:20 Review of Systems Review of Systems: Pertinent positives per HPI. Patient denies any fever, chills, rash, visual changes, dizziness, shortness of breath, chest pain, palpitations,vomiting, diarrhea, constipation, abdominal pain, or any urinary issues. [facility] Past Medical History Medical History History of COVID-19 08/2022 Bulging lumbar disc Kidney stone Ulcerative colitis Renal cyst, acquired, left Low back pain Irritable bowel Vaginal delivery x1 Vitamin D deficiency Inflammatory arthritis ROX positive (~11/2018) Anxiety Surgical History Surgical History H/O ventral hernia repair 11/11/23 Laparoscopic 3 cm ventral hernia repair with mesh, da Domingo assisted History of cholecystectomy History of tonsillectomy History of placement of ear tubes Family History Family History Father Family history of malignant neoplasm of brain Grandparent Family history of malignant neoplasm of brain Mother Diabetes mellitus Rheumatoid arthritis Osteoarthritis Hypertension Sibling Hypertension Social History Social History Smoking status: Never smoker Second hand tobacco smoke exposure: No Alcohol intake: current Alcohol use details: rarely Substance use: never Substance use type: does not use Lack of Transportation: No Lack of Food: Never True Current Housing: I Have Housing Concerned About Future Housing: No Difficulty Paying Gas/Electric Bills: No Difficulty Paying for Meds: No Currently Unemployed: No Education: Associate Degree Difficulty w/ Childcare or Family Care: No Living arrangements: with family Occupation/Education: occupation 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 There is no relevant family history pertinent to the patient complaint. Exam Narrative: General: Well-developed, morbidly obese, in no apparent distress Head: Normocephalic, atraumatic Eyes: Pupils equally round and reactive to light bilaterally, EOM intact, sclera and conjunctive clear, no discharge, lids normal Ears: TMs intact and clear, ear canals clear, no drainage, grossly hearing normal. Nose: Nares patent, clear discharge, mild inflammation, no sinus tenderness. Mouth: Oral pharynx without lesions or masses, good dentition, MMM. Tonsils surgically absent Neck: Supple, trachea midline, no enlargement of anterior or posterior cervical nodes, no thyroid masses or goiter palpable. Cardio: Regular rate and rhythm, s1 and s2 normal, no murmur appreciated. Resp: Clear to auscultation bilaterally, no rhonchi, rales, wheezing or rubs Course Course Level of Care: Express Care Visit MDM MDM Narrative Medical decision making narrative: At the time of visit patient is resting comfortably on the exam table. Patient appears to be nontoxic. C/o headache, sinus congestion, scratchy throat, nonproductive cough, and body aches x3 days. She denies any known fevers, chills, or body aches. Has been taking nibu-ejv-ezrrpgd cough and cold medicine for her symptoms. Denies any chest pain or shortness of breath. On exam patient has clear bilateral TMs intact, clear nasal drainage, mild anterior turbinate inflammation, oral pharynx normal, no cervical lymphadenopathy, heart rates regular rate and rhythm, lung sounds are clear. Offered COVID, flu, and strep test. Would like to only have COVID testing completed. Vital signs reviewed and stable. Labs: COVID testing was negative in the clinic today Plan: I suspect patient has URI/viral syndrome. Work note was given for today. Supportive measures were discussed with the patient and they voiced understanding discharge instructions and agrees to treatment plan. Return precautions reviewed Differential Diagnosis Differential Diagnosis: Differential diagnostic considerations for upper respiratory infection include upper respiratory infection, croup, otitis media, sinusitis, viral infection, bronchitis, influenza, pharyngitis, strep, uvulitis. Discharge Plan Discharge Clinical Impression: Acute viral syndrome URI (upper respiratory infection) Qualifiers: URI type: unspecified URI Qualified Code(s): J06.9 - Acute upper respiratory infection, unspecified Patient Disposition: Home Condition: Stable Instructions: Antibiotic Form, Upper Respiratory Infection (ED), Viral Syndrome (ED) Additional Instructions: COVID testing was negative in the clinic today. Lungs are clear there is no sign of bacterial infection in the clinic today. May take DayQuil/NyQuil for cold/flu symptoms Increase fluids and stay well hydrated May take Tylenol or motrin as directed on bottle for pain/fever May use Flonase 1 spray in each nare daily May take OTC antihistamines such as Zyrtec or Claritin daily as directed on bottle May apply Vicks vapor rub to chest to open sinuses Sinus rinses for congestion Cepacol spray, cough drops, throat lozenges, warm tea with honey/lemon, gargle salt water to soothe throat BRAT diet for diarrhea Clear liquids x 24 hours then advance as tolerated for nausea/vomiting Go to the ED if you develop a worsening in your condition- high fever not controlled by Tylenol or Motrin, dehydration, weakness, lethargy, shortness of breath, or chest pain. Follow up with your PCP in 3-5 days if symptoms persist. Patient Language: Icelandic Prescriptions: No Action fluticasone propionate [Flonase Allergy Relief] 50 mcg/actuation spray,suspension 1 spray intranasal BID Qty: 16 0RF Rx Instructions: administer into each nostril albuterol sulfate 90 mcg/actuation HFA aerosol inhaler 1 inh inhalation Q4H PRN (Reason: shortness of breath or wheezing) Qty: 8.5 0RF sertraline 50 mg tablet See Rx Instructions .ROUTE .COMPLEX Qty: 90 2RF Dose Instruction: TAKE 1 TABLET BY MOUTH DAILY Patient Comments: patient takes HS Rx Instructions: TAKE 1 TABLET BY MOUTH DAILY norethindrone (contraceptive) [Almaz] 0.35 mg tablet 0.35 mg PO DAILY Qty: 84 4RF Follow-up/Referrals: UNKNOWN,DOCTOR [Primary Care Provider] Stand Alone Forms: Work/School Release IP Time of Disposition: 14:05 Quality NIHSS Nursing Documentation ED NIHSS nursing documentation: reviewed/agree
[2025-04-12 13:28] VITALS: BP 121/86; PULSE 91; RESP 16; TEMP 36.3; O2SAT 99
[2025-04-12 13:51] LABS: EDCOVIDSCREEN Negative (Negative)
== END 2025-04-12 14:11 | disposition home or self-care (01) ==
PROVIDERS: Emergency Provider Nurse Practitioner Family
DX: B34.9 Viral infection, unspecified (principal); J06.9 Acute upper respiratory infection, unspecified; Z20.822 Contact with and (suspected) exposure to COVID-19; F41.9 Anxiety disorder, unspecified; M19.90 Unspecified osteoarthritis, unspecified site
CPT/HCPCS: 87426; 99212; G0463